=== PATIENT | male | born 1950 | race Caucasian/White ===

== ENCOUNTER 2019-02-13 15:45 | Inpatient (IN) | payer MEDICARE ==
[~2019-02-13] VITALS: Ht 182.8 cm; Wt 76.2 kg
--- NOTE | ~2019-02-13 | PR ---
[place], [place] PROGRESS NOTE NAME[id number] UNIT #: [id number] ROOM: 425 DOCTOR: SEBASTIAN SPENCER MD,ELIANA BIRTHDATE: [birth year] DOS: 02/21/2019 PULMONARY PROGRESS NOTE SUBJECTIVE: The patient was noted comfortable at this time, resting on the bed this morning of assessment, has not been noted with any acute new respiratory complaints. He has been currently showing gradual improvement in the respiratory symptoms as well. He has been continued on intravenous vancomycin for the acute methicillin-resistant Staphylococcus aureus pneumonia and pleural fluid related to that. Denies symptoms of headache or diplopia. Remaining systems were reviewed and they were noted all negative. PHYSICAL EXAMINATION: GENERAL: The patient is currently sitting comfortably on the bed without any distress this morning of assessment. VITAL SIGNS: Recorded as normal temperature, respiratory rate is 20, heart rate is 73, and blood pressure is 142/52. Pulse oxygen saturation on room air is 95% saturation. HEENT: On examination, head was atraumatic. Eyes nonicterus. NECK: Supple. CARDIOVASCULAR SYSTEM: S1, S2 is audible. LUNGS: Without any wheeze or crackles. ABDOMEN: Soft, nontender. Bowel sounds present. EXTREMITIES: Without acute edema. MUSCULOSKELETAL: Without any acute deformities. CENTRAL NERVOUS SYSTEM: Cranial nerves 2-12 intact. LABORATORY DATA: BMP today, normal BUN and creatinine. The CBC of the patient this morning was noted with leukopenia and anemia findings. WBC count was 4.1, hemoglobin was 7.8, hematocrit was 23.8, and platelet count was normal. IMAGING DATA: Chest x-ray was also done this morning shows chest tube in place, marked improvement in aeration of the lung. The pleural fluid, Cytology was noted essentially benign. IMPRESSION: 1. The patient with resolution of loculated pleural fluid, parapneumonic at this time with use of pleurolysis. 2. The patient with acute methicillin-resistant Staphylococcus aureus pneumonia and acute leukopenia and anemia at this time, etiology unclear, could be medication-induced, may require further assessment. PLAN OF THERAPY: Chest tube has been removed at bedside. Continue antibiotic, total of 15 days completion, 14 days minimum for the MRSA pneumonia management complicated with current pleural effusion. The patient's anemia workup has been ordered by Dr. Means. Other therapy, plan of management, and additional treatment changes will be made based on progression of the illness. [place], [place] PROGRESS NOTE NAME: HIMANSHU LOPEZ UNIT #: [id number] ROOM: 425 DOCTOR: ELIANA LEVINE MD BIRTHDATE: [birth year] ELIANA CORTES MD CM:CAITLYN [id number] ELIANA SPENCER MD 02/21/19 2354 interface
--- NOTE | ~2019-02-13 | EKG ---
[place], [place] ELECTROCARDIOGRAM REPORT NAME: HIMANSHU LOPEZ UNIT #: [id number] ROOM: 425 DOCTOR: CLIFF DRAFT REPORT BIRTHDATE: [birth year] [facility] Test Date: 2019-02-15 Test Time: 13:58:17 Pat Name: HIMANSHU LOPEZ Department: Room: 425 Gender: M Head Of Science: Shania Arevalo : 1950 Requested By: ELIANA SPENCER Order Number: [id number] Reading MD: Eliana Lei MD Measurements Intervals Jarrell Rate: 78 P: 73 [place]: 163 QRS: 42 QRSD: 90 T: 43 QT: 412 QTc: 470 Interpretive Statements Sinus rhythm Left ventricular hypertrophy No previous ECG available for comparison Electronically Signed On 02-18-2019 10:54:54 PDT by Eliana Lei MD CM:EKGRPT:ELECTROCARDIOGRAM REPORT [id number] ELIANA SPENCER MD EPIPHANY DRAFT REPORT ELIANA SPENCER MD
--- NOTE | ~2019-02-13 | PROC NOTE ---
[place], [place] PROCEDURE NOTE [id number] UNIT #: [id number] ROOM: 425 DOCTOR: SEBASTIAN SPENCER MD,ELIANA BIRTHDATE: [birth year] DOS: 02/17/2019 PROCEDURE: Chest tube thoracostomy. PREOPERATIVE DIAGNOSIS: Loculated [id number] right pleural effusion with ultrasound assessment related to current acute pneumonia. POSTOPERATIVE DIAGNOSIS: Insertion of the 20-Macedonian chest tube into the right pleural space without any difficulty with some serosanguineous fluid drainage was noted. COMPLICATIONS: None. PROCEDURE DESCRIPTION: Informed consent obtained. Ultrasound of the chest was already performed and the site of thoracentesis marked in the right posterior lower chest. Skin was cleaned with chlorhexidine solution. A 1% lidocaine was administered into the skin and intercostal space. During administration of local anesthetic, a small amount of fluid was aspirated. After that, large bore needle entered into the pleural fluid. The guidewire threaded through the needle, after the aspiration fluid was confirmed in the syringe. After that, needle was removed leaving the guidewire in place. The incision was given at the exit site, this incision was enlarged up to 22-Macedonian plastic dilator over the guidewire. A 20-Macedonian chest tube was inserted up to 8 cm jennifer without difficulty. The initial specimen taken for the sample of the fluid as well as cultures and the pH. Chest x-ray post-procedure was noted with reduction of the pleural fluid formation with area of atelectasis, infiltration with small loculated fluid was noted. Chest tube will be connected to the suction. Chest x-ray daily monitoring will be ordered. Pleural fluid analysis will be completed. ELIANA CORTES MD CM:PROCNOTE:PROCEDURE NOTE [id number] ELIANA SPENCER MD
--- NOTE | ~2019-02-13 | PR ---
[place], [place] PROGRESS NOTE NAME[id number] UNIT #: [id number] ROOM: 425 DOCTOR: SEBASTIAN SPENCER MD,ELIANA BIRTHDATE: [birth year] DOS: 02/18/2019 SUBJECTIVE: The patient is noted comfortable at this time, resting in the bed, has a chest tube inserted yesterday about 850 mL of pleural fluid was drained that did not include the specimen. Total drainage actually would be considered at night and 50 mL of pleural fluid drainage. He has been noted comfortable at this time. Mild chest pain noted which is treated with pain medication for the chest tube. Because of chest tube, the patient has symptoms of fever or chills. Coughing has been noted absent. Shortness of breath is improving with symptoms of nausea, vomiting, diarrhea, abdominal pain, hematemesis, melena, or hematochezia. The patient continued on the intravenous antibiotic as vancomycin. Remaining systems were reviewed, they were noted all negative. OBJECTIVE: VITAL SIGNS: Temperature noted as 99.7 degrees Fahrenheit, respirations 18, heart rate 85, blood pressure 161/60 this morning. Pulse oxygen on room air 94% saturation. HEENT: Head was atraumatic. Eyes nonicterus. NECK: Supple. CARDIOVASCULAR: S1, S2 audible. LUNGS: Decreased breath sounds in the right lower lung. There were no crackles or wheezing. ABDOMEN: Soft, nontender, bowel sounds present. EXTREMITIES: No acute change. MUSCULOSKELETAL: Without acute deformities. CENTRAL NERVOUS SYSTEM: Noted grossly intact. No focal deficit. MUSCULOSKELETAL: No acute deformity. SKIN: No lesions or rashes. LABORATORY DATA: The pleural fluid analysis, WBC 1234 with 28% macrophages 62% neutrophils, 9% lymphocytes. The glucose is 101. The total protein of 3.7. LDH 624, pH is 7.10. Cholesterol less than 50. Amylase and lipase were normal. The CBC this morning was noted WBC count normal, hemoglobin 11.5, platelet count was normal. Culture of the bronchial washing was noted to have a growth of MRSA. BMP that was done this morning, normal BUN and creatinine. Culture of the pleural fluid was noted no bacterial no organisms seen, many white blood cells. Chest x-ray done this morning Radiology review report was pending. The chest x-ray shows evidence of small fluid in the right minor fissure with pleural thickening noted, chest tube remains in place in the right lower hemithorax. Left lung remains clear. IMPRESSION: 1. Acute pneumonia with complicated pleural fluid secondary to that related to acute pneumonia with methicillin-resistant Staphylococcus aureus. 2. Acute methicillin-resistant Staphylococcus aureus pneumonia. PLAN OF MANAGEMENT: The pleurolysis, the patient will be attempted today with a CATHFLO. Continue current antibiotic. Maintain trough level, vancomycin [place], [place] PROGRESS NOTE NAME: HIMANSHU LOPEZ UNIT #: [id number] ROOM: [facility] DOCTOR: SEBASTIAN SPENCER MD,ELIANA BIRTHDATE: [birth year] between 15-20. Other therapy, plan of management. Additional treatment changes will be done according to the progression of illness. ELIANA CORTES MD CM:PNTRANS 1341 15 ELIANA SPENCER MD 06/23/19 1302 interface
--- NOTE | ~2019-02-13 | PR ---
[place], [place] PROGRESS NOTE [id number] UNIT #: [id number] ROOM: 425 DOCTOR: SEBASTIAN SPENCER MD,EILANA BIRTHDATE: [birth year] DOS: 02/24/2019 SUBJECTIVE: The patient continue to do well at this time. Prep for the patient upper and lower endoscopy for assessment of current progressive anemia. The patient has not been noted symptoms of hematemesis, melena. Denies symptoms of fever, chills, coughing or any sputum expectoration. OBJECTIVE: VITAL SIGNS: For the patient which were recorded this morning showed the temperature recorded as normal. Respiratory rate recorded as 18, heart rate 84, blood pressure 158/60. The pulse oxygen saturation as 97% saturation. HEENT: Examination shows head was atraumatic. Eyes nonicterus. NECK: Supple. CARDIOVASCULAR: S1, S2 is audible. LUNGS: The patient was noted without any wheezing or crackles. ABDOMEN: Soft, nontender. Bowel sounds present. EXTREMITIES: No new change. LABORATORY DATA: NÉSTOR level noted as a mildly abnormal. IMPRESSION: 1. The patient with persistent leukopenia that was noted. 2. Resolving acute pneumonia and acute, resolved parapneumonic pleural fluid with methicillin-resistant Staphylococcus aureus. 3. The patient with anemia. PLAN OF TREATMENT: Continue treatment plan and management as previously. No changes in the antibiotic. Proceed with the GI workup and assessment. ELIANA CORTES MD CM:PNTRANS [id number] ELIANA SPENCER MD 06/23/19 1305 interface
--- NOTE | ~2019-02-13 | PR ---
[place], [place] PROGRESS NOTE NAME: HIMANSHU LOPEZ UNIT #: [id number] ROOM: 425 DOCTOR: ELIANA LEVINE MD BIRTHDATE: [birth year] DOS: 02/28/2019 PULMONARY PROGRESS NOTE SUBJECTIVE: The patient was independently seen and examined with [id number] encounter, history was confirmed. Physical examination was performed. Labs reviewed. Assessment and management of the patient today's note was personally made. Note done by the medical technologist hematology was approved as well. The patient has been noted comfortable at this time, resting on the bed, still complaining of a small amount of blood in the stool. Respiratory-hameed, doing very well with absence of any acute symptoms of coughing, wheezing, chest pain, or shortness of breath. Continued receiving intravenous antibiotics. OBJECTIVE: VITAL SIGNS: Normal temperature, respiratory rate 20, heart rate 63, blood pressure 158/60. Pulse oxygen saturation was recorded on room air 98% saturation. HEENT: Head was atraumatic. Eyes nonicterus. NECK: Supple. CARDIOVASCULAR: S1, S2 is audible. LUNGS: Without any wheezing or crackles. ABDOMEN: Soft, nontender. Bowel sounds present. EXTREMITIES: No new change. LABORATORY DATA: The patient's CBC today, hemoglobin 9.8, hematocrit 30.2, WBC count 3.6, and normal platelet count. IMPRESSION: 1. The patient with a stable mild leukopenia as well as stable hemoglobin and hematocrit as well suggestive of major active peptic ulcer bleed. 2. Resolving acute pneumonia with methicillin-resistant Staphylococcus aureus. PLAN OF TREATMENT: No changes in the plan of management. Continue current therapy, plan of management, and close monitoring of the respiratory status, complete the antibiotic course of 14-15 days with vancomycin since he started for the methicillin-resistant Staphylococcus aureus pneumonia. [place], [place] PROGRESS NOTE NAME: HIMANSHU LOEPZ UNIT #: [id number] ROOM: 425 DOCTOR: ELIANA LEVINE MD BIRTHDATE: [birth year] ELIANA CORTES MD CM:PNTRANS [id number] ELIANA SPENCER MD 06/23/19 1311 interface
--- NOTE | ~2019-02-13 | CON ---
[place], [place] REPORT OF CONSULTATION NAME: HIMANSHU LOPEZ UNIT #: [id number] ROOM: 425 DOCTOR: RYDER CONRADSUSAN BIRTHDATE: [birth year] DOS: 02/22/2019 GASTROENDOSCOPIC CONSULTATION HISTORY OF PRESENT ILLNESS: This is a 68-year-old patient who has presented with a chief complaint of profound anemia, hemoglobin of 6 and hematocrit 19. I have been asked for assessment of the patient regarding suspected hematemesis in addition to hemoptysis. His chest x-ray today revealed prior exam of right chest tube has been removed, no pneumothorax, right lower lobe infiltrate is being addressed with Pulmonary Medicine. His latest H and H is 6 and 19. His latest basic metabolic panel within normal limits. Pleural fluid sent out for definitive results. Status post chest tube, status post bronchoscopy, status post antibiotic therapy, all have been recognized. PAST MEDICAL HISTORY: Gastroesophageal reflux, asthma, COPD. PAST SURGICAL HISTORY: Minor. SOCIAL HISTORY: Active nicotine consumer, a pack of cigarettes. About two 6-pack of beer per day. FAMILY HISTORY: Noncontributory. ALLERGIES: No known medications. MEDICATIONS AT HOME: Aspirin 81 mg. REVIEW OF SYSTEMS: HEENT: Denies double vision or blurred vision. RESPIRATORY: Admits shortness of breath. CARDIOVASCULAR: Denies chest pain. DIGESTIVE SYSTEM: No hematemesis, no hematochezia until the day before yesterday where he noticed black tarry stool. PHYSICAL EXAMINATION: VITAL SIGNS: Stable. GENERAL: Nontoxic. The patient is alert and oriented. HEENT: Benign. NECK: Supple. No thyromegaly. CHEST: Symmetric anatomy. COPD pattern, status post chest tube removal. HEART: Normal sinus rhythm. No gallop. No murmur. ABDOMEN: Soft. No hepato-organomegaly. Bowel sounds present. I do not feel the edge of the liver. EXTREMITIES: No cyanosis. No pedal edema. NEUROLOGIC: Alert, oriented to time, place and person. IMPRESSION: 1. Profound anemia, black tarry stool. 2. Other adjunctive diagnoses and events as described in past medical, surgical history, status post bronchoscopy, status post chest tube and chest tube [place], [place] REPORT OF CONSULTATION NAME: HIMANSHU LOPEZ UNIT #: [id number] ROOM: 425 DOCTOR: RYDER CONRAD,SUSAN BIRTHDATE: [birth year] removal. PLAN AND DISCUSSION: Transfusion of one unit packed cells today. We are organizing EGD and colonoscopy in the next day or two. Thank you very much indeed. SUSAN SOLER MD CM:CONSTR:REPORT OF CONSULTATION 1458 03/01/19 0742 interface
--- NOTE | ~2019-02-13 | PR ---
[place], [place] PROGRESS NOTE [id number] UNIT #: [id number] ROOM: 425 DOCTOR: SEBASTIAN SPENCER MD,ELIANA BIRTHDATE: [birth year] DOS: 02/17/2019 PULMONARY PROGRESS NOTE SUBJECTIVE: The patient was noted comfortable at this time, noted resting. The bronchoscopy done yesterday as well. The diagnosis of MRSA was confirmed has a sputum culture, which was sent on 02/14/2019. The patient has been receiving intravenous vancomycin. Denies symptoms of hemoptysis, fever or chills. Low-grade fever was noted intermittently. Denies symptoms of headache or diplopia. Remaining systems were reviewed. They were noted all negative. PHYSICAL EXAMINATION: VITAL SIGNS: Temperature 99.6 degrees Fahrenheit to normal temperature, respiratory rate 16-18, heart rate 140-86, blood pressure 152/51 to 162/72. The pulse oxygen saturation on room air 92% saturation. HEENT: Head was atraumatic. Eyes nonicterus. NECK: Supple. CARDIOVASCULAR: S1, S2 audible. LUNGS: Decreased breath sounds in the right lower lung. ABDOMEN: Soft and nontender. Bowel sounds present. EXTREMITIES: The patient without any acute edema. MUSCULOSKELETAL: Without any acute deformities. CENTRAL NERVOUS SYSTEM: Cranial nerves 2-12 intact. LABORATORY DATA: Gram stain of the bronchial washing right lower lobe and the BAL many white blood cells, moderate gram-positive cocci in pairs, chains and clusters. Sputum culture, both of them was noted heavy growth of gram-positive cocci as well. Pending final results for identification sensitivities. Vancomycin trough level noted at 9.5. Chest x-ray, which was done this morning was reviewed, shows increase of the pleural fluid was noted ordered by the primary care attending as compared with previous chest x-ray. IMPRESSION: The patient with interval development of pleural fluid with the loculation was also assessed with the ultrasound and the chest x-ray related to current acute methicillin-resistant staphylococcus aureus pneumonia. PLAN OF MANAGEMENT: Chest tube insertion will be done with loculation currently complicated. Pleural fluid management. Close monitoring will be done. Might need a VATS procedure tried could be given with the fibrinolytic therapy as well to help improve the current loculated pleural fluid if he failed to do that, VATS procedure will be necessary. This has been discussed with the patient. Other therapy, plan of management and additional treatment changes will be made based on progression of illness. Past, family, social, surgical history of the patient remains unchanged as previously. Vancomycin dose will be changed to get the trough level between 15 and 20. Continue monitoring of the labs as well at this time. The patient has not had any CMP. CBC done in the last 24 hours. It will be re-ordered. [place], [place] PROGRESS NOTE NAME: HIMANSHU LOPEZ [facility] UNIT #: [id number] ROOM: 425 DOCTOR: ELIANA LEVINE MD BIRTHDATE: [birth year] ELIANA CORTES MD CM:PNTRANS 1249 7 ELIANA SPENCER MD 02/18/19227 interface
--- NOTE | ~2019-02-13 | PROC NOTE ---
[place], [place] PROCEDURE NOTE NAME[id number] UNIT #: [id number] ROOM: 425 DOCTOR: SEBASTIAN SPENCER MD,ELIANA BIRTHDATE: [birth year] DOS: 02/16/2019 PROCEDURE: Bronchoscopy. PREOPERATIVE DIAGNOSES: The patient with hemoptysis, abnormal pulmonary infiltration in the lung, rule out endobronchial obstruction for endobronchial lesion or any evidence of active hemoptysis. POSTOPERATIVE DIAGNOSES: Evidence of pneumonia suggestive of endobronchial lesions. BAL specimen was obtained from the right lower lobe including bronchial washings obtained. COMPLICATIONS: None. PROCEDURE DESCRIPTION: Informed consent obtained for the patient. The patient brought to the OR and placed in a supine position. Conscious sedation administered by the Anesthesia Department. After the proper sedation, the patient's airway introduced through mouth. Bronchoscope was advanced to the airway into laryngeal area. Epiglottis and vocal cords were seen, which were moving symmetrically with movements. Bronchoscope advanced further through the vocal and tracheal lumen noted small purulent secretion and suctioned out jefferson level. There was no evidence of active bleeding. Tracheal lumen was noted free of any lesions. The jefferson noted sharp. Left upper lobe as well as right upper, right middle, right lower lobe bronchi were all examined. Purulent secretion present in right lower lobe endobronchial tree, which was suctioned out. There were no endobronchial obstructive lesion, evidence of active bleeding. Old clotted blood noted in the airways. Bronchial washing taken endobronchial trees to other subsegments level. The BAL specimen was also obtained in the right lower lobe basilar bronchi. Procedure was well tolerated without difficulty. Postoperative findings were discussed with the patient's spouse in the recovery room. No major change at this time in the treatment will be necessary. ELIANA CORTES MD CM:PROCNOTE:PROCEDURE NOTE [id number] ELIANA SPENCER MD
--- NOTE | ~2019-02-13 | PR ---
[place], [place] PROGRESS NOTE NAME: HIMANSHU LOPEZ UNIT #: [id number] ROOM: 425 DOCTOR: SEBASTIAN SPENCER MD,ELIANA BIRTHDATE: [birth year] DOS: 02/23/2019 SUBJECTIVE: The patient has been noted comfortable at this time, resting in the bed this morning. Chest tube has been removed 2 days ago. He has been getting antibiotic. Planned for the endoscopy to be done tomorrow for assessment of his anemia. OBJECTIVE: VITAL SIGNS: For the patient which were recorded showed normal temperature, respiratory rate 16, blood pressure 144/57. Pulse oxygen saturation on room air was 97% saturation. HEENT: Head was atraumatic. Eye nonicterus. NECK: Supple. CARDIOVASCULAR: S1, S2 is audible. LUNGS: Without any wheeze or crackles. ABDOMEN: Soft, nontender. LABORATORY DATA: BMP today was noted normal BUN and creatinine. CBC this morning, WBC count 4.3, hemoglobin 8, hematocrit 20.3 after 2 packed RBC blood transfusions. Stool for occult blood noted positive. IMPRESSION: GI bleeding has been noted, resolving acute respiratory failure as well as an acute pneumonia with MRSA. Resolution of the complicated pleural fluid, chest tube insertion that has been already removed. PLAN OF TREATMENT: Continue GI workup at this time from the pulmonary standpoint. Continue antibiotic. Monitor leukopenia. Usual care as well as therapy, plan of management care, plan of treatments. ELIANA CORTES MD CM:PNTRANS 1154 1647 ELIANA SPENCER MD 06/23/19 1304 interface
--- NOTE | ~2019-02-13 | O ---
[place], [place] OPERATIVE NOTE NAME: HIMANSHU LOPEZ UNIT #: [id number] ROOM: 425 DOCTOR: RYDER CONRAD,SUSAN BIRTHDATE: [birth year] DOS: 02/24/2019 INDICATIONS: This is a 68-year-old patient who was presented with chief complaint of anemia, GI bleed, undergoing investigation. PROCEDURE: Today's procedure part of investigation is panendoscopy and colonoscopy. PREMEDICATION: Propofol. SCOPE: Olympus forward-viewing gastroscope Q10 video. REPORT: After putting the patient in left lateral position and application of lubricant to the scope, the scope was introduced under direct visualization, advanced through the length of esophagus without difficulty. Entering the gastric pouch, there is evidence of blood in the stomach. Duodenal bulb was entered so far. Gastritis noticed. However, large duodenal ulcer with bleeding spots from the center. Photographic series obtained. Epinephrine 1-10,000, 3 mL was injected in the periphery of bleeding ulcer. Bleeding controlled. Air was suctioned out after antral biopsy. The patient extubated, tolerated the procedure well. IMPRESSION: Gastritis, duodenal ulcer, status post hemostasis epinephrine injection therapy. We will proceed with colonoscopy. SUSAN SOLER MD CM:OPRECORD:OPERATIVE NOTE 1607 [id number] SUSAN SOLER MD 03/01/19 0746 interface
--- NOTE | ~2019-02-13 | PR ---
[place], [place] PROGRESS NOTE NAME: HIMANSHU LOPEZ UNIT #: [id number] ROOM: 425 DOCTOR: ABE AGUILAR DO BIRTHDATE: [birth year] DOS: 02/28/2019 PULMONARY PROGRESS NOTE INTERVAL HISTORY: The patient states that he feels good today. The patient states his breathing is at his baseline. The patient states that he does have a small amount of blood in his stool this morning. The patient denies any coughing or shortness of breath. PHYSICAL EXAMINATION: VITAL SIGNS: Temperature 98.7, pulse of 63, respiratory rate 20, blood pressure is 158/60, and pulse ox of 98% on room air. HEENT: Atraumatic, nonicteric eyes. CARDIOVASCULAR: Regular rate and rhythm. S1 and S2 are audible. LUNGS: The patient without any wheezing or crackles. ABDOMEN: Soft, nontender, bowel sounds present. EXTREMITIES: No acute changes. NEUROLOGIC: No focal neuro deficits. Cranial nerves 2-12 grossly intact. LABORATORY DATA: Shows white count 33.6, hemoglobin 9.8, hematocrit 30.2, and platelets 382. Chemistry: Sodium is 139, potassium 3.6, chloride 101, carbon dioxide 31, BUN 4, creatinine 0.92, glucose 111, and calcium noted to be 8.4. IMPRESSION: 1. The patient with acute gastrointestinal bleed. 2. Leukopenia. 3. Anemia. 4. Resolving acute MRSA pneumonia. With resolved parapneumonic pleural effusions. PLAN AND TREATMENT: No change from pulmonary standpoint, continue antibiotic use until 03/04/2019. Monitor labs. Follow GI recommendations. Estevan Aguilar DO [place], [place] PROGRESS NOTE NAME: HIMANSHU LOPEZ UNIT #: [id number] ROOM: 425 DOCTOR: ABE AGUILAR DO BIRTHDATE: [birth year] ELIANA CORTES MD CM:PNTRANS [id number] [id number] ABE AGUILAR DO 03/01/19 1013 interface
--- NOTE | ~2019-02-13 | PR ---
[place], [place] PROGRESS NOTE NAME: HIMANSHU LOPEZ UNIT #: [id number] ROOM: 425 DOCTOR: ELIANA LEVINE MD BIRTHDATE: [birth year] DOS: 02/22/2019 PULMONARY PROGRESS NOTE SUBJECTIVE: The patient has been noted comfortable at this time, currently being investigated for the acute anemia, which was noted at the present time. He has been getting antibiotics as vancomycin for the MRSA pneumonia. Chest tube was removed yesterday. OBJECTIVE: VITAL SIGNS: The vital signs, which have recorded this morning, normal temperature, respiratory rate is 20, heart rate is 110, and blood pressure is 160/50. Pulse oxygen saturation on room air is 94% saturation. HEENT: Examination shows head was atraumatic. Eyes were nonicterus. CARDIOVASCULAR SYSTEM: S1, S2 audible. LUNGS: Noted with mild decreased breath sounds in the right lower lung. There were no crackles. ABDOMEN: Soft, nontender, bowel sounds present. EXTREMITIES: No acute change. LABORATORY DATA: Vancomycin trough level is 25 today, which is mildly elevated. CBC this morning: WBC count is 4.5, hemoglobin is 6.5, hematocrit is 19.6 with normal platelet count. IMAGING DATA: Chest x-ray, which was done this morning, ordered by the primary care attending, noted small right lower lobe infiltrate. IMPRESSION: 1. The patient has been currently noted with acute pneumonia with methicillin-resistant Staphylococcus aureus, which has been resolving with pleural fluid related to the acute bacterial infection and methicillin-resistant Staphylococcus aureus pneumonia, treated with chest tube insertion as well as pleurolysis. 2. The patient with progressive anemia, etiology remains unclear. Possible gastrointestinal bleeding has been considered. PLAN OF MANAGEMENT: Continuation of the bronchodilators, oxygen supplementation, and antibiotics. Adjustment of the antibiotic by the pharmacy to maintain a trough level between 15 and 20. [place], [place] PROGRESS NOTE NAME: HIMANSHU LOPEZ UNIT #: [id number] ROOM: 425 DOCTOR: ELIANA LEVINE MD BIRTHDATE: [birth year] ELIANA CORTES MD CM:PNTRANS [id number] ELIANA SPENCER MD 06/23/19 1303 interface
--- NOTE | ~2019-02-13 | PR ---
[place], [place] PROGRESS NOTE NAME[id number] UNIT #: [id number] ROOM: 425 DOCTOR: SEBASTIAN SPENCER MD,ELIANA BIRTHDATE: [birth year] DOS: 02/16/2019 SUBJECTIVE: The patient was noted about the comfortable. This morning he is n.p.o., bronchoscopy done today. Coughing has been noted intermittently small sputum expectoration. Denies any major hemoptysis. There were no symptoms of chest pain. Shortness of breath occurs with exertion. Denies symptoms of wheezing, headache, diplopia, nausea, vomiting, diarrhea, abdominal pain, hematemesis, melena, or hematochezia. Remaining systems reviewed as negative. OBJECTIVE: VITAL SIGNS: On low-grade fever of 99.4 degree Fahrenheit, normal temperature, respiratory rate 18-20, heart rate 89-73, blood pressure 167/73, 156/65. Pulse oxygen saturation recorded as 93% saturation on room air. HEENT: Examination shows head was atraumatic. Eyes nonicterus. NECK: Supple. CARDIOVASCULAR: S1, S2 audible. LUNGS: The patient decreased breath sounds previously noted in the right lower lung. The mild crackles were present. ABDOMEN: Soft, nontender. Bowel sounds present. EXTREMITIES: The patient without acute edema. MUSCULOSKELETAL: Without acute deformities. VISIBLE SKIN: No lesions or rashes. CENTRAL NERVOUS SYSTEM: Intact. LABORATORY DATA: Sputum culture was pending this morning, which was sent on of this month, gram-positive cocci growth was suggested. BMP this morning, BUN 10, creatinine was 0.62. CBC this morning: WBC count normal, hemoglobin 12.4, MCV 101 with normal platelet count. IMPRESSION: 1. The patient has been currently noted with acute large pneumonia involving the right lower lobe with associated small pleural effusion. 2. Hemoptysis, mostly originating from the current pulmonary infiltration suggestive of acute pneumonia, gram-positive organism, pending identification sensitivities of the organisms. PLAN OF TREATMENT: No change in the plan of care at this time. Continue the patient's current therapy at this time as in progress. Proceed with bronchoscopy, manage antibiotic, the patient may changes after the culture results availability and bronchoscopy accordingly. Other therapy, plan and management, additional treatment changes will be made based on the progression of the illness. [place], [place] PROGRESS NOTE NAME: HIMANSHU LOPEZ UNIT #: [id number] ROOM: 425 DOCTOR: ELIANA LEVINE MD BIRTHDATE: [birth year] ELIANA CORTES MD CM:PNTRANS [phone] ELIANA SPENCER MD 06/23/19 1300 interface
--- NOTE | ~2019-02-13 | PROC NOTE ---
[place], [place] PROCEDURE NOTE NAME: [facility]OPEZ [id number] UNIT #: [id number] ROOM: 425 DOCTOR: SEBASTIAN SPENCER MD,ELIANA BIRTHDATE: [birth year] DOS: 02/18/2019 PROCEDURE: Chemical pleurodesis with Cathflo. PREOPERATIVE DIAGNOSES: Loculated pleural fluid secondary to the current acute pneumonia with methicillin-resistant Staphylococcus aureus. POSTOPERATIVE DIAGNOSES: Loculated pleural fluid secondary to the current acute pneumonia with methicillin-resistant Staphylococcus aureus. COMPLICATIONS: None. PROCEDURE DESCRIPTION: The patient informed about the procedure. The chest tube was clamped. The Cathflo, which is a 4 mg total amount mixed in 50 normal saline, injected through the chest tube into the right pleural space without any difficulty. Additional 100 mL of normal saline was used for the patient to flush the chest tube as well. The chest tube for 1 hour remained clamped. Clamp will be removed for further drainage to the Pleur-evac. Procedure well tolerated without any complications. ELIANA CORTES MD CM:PROCNOTE:PROCEDURE NOTE [phone] ELIANA SPENCER MD
--- NOTE | ~2019-02-13 | O ---
[place], [place] OPERATIVE NOTE NAME: HIMANSHU LOPEZ UNIT #: [id number] ROOM: 425 DOCTOR: RYDER CONRAD,SUSAN BIRTHDATE: [birth year] DOS: INDICATION: The patient has presented with GI bleed. PROCEDURE: Today's procedure part of investigation is colonoscopy plus snare polypectomy. PREMEDICATION: Propofol. SCOPE: Olympus forward-viewing colonoscope 10L video. REPORT: Putting the patient in left lateral position and application of lubricant to the rectal pouch. The scope was introduced. Thereafter, under direct visualization, advanced through the length of colon without difficulty until we approach major flexures and his extreme tortuosity angulation, severe diverticulosis of sigmoid and left side of the colon. Scope was advanced to the hepatic flexure snare polypectomy of a flat polyp was undertaken ascending colon. Base of cecum could not be with certainty diagnosed with presence of tarry liquid stool and air was suctioned out after lavage the patient extubated, tolerated the procedure well. IMPRESSION: Diverticulosis of severe degree of colon, sessile polypoid lesion flat at hepatic flexure. PLAN AND DISCUSSION: We are going to manage the upper GI bleed with Sandostatin, Carafate, Protonix as the culprit in bleeding and eventually this patient requires a barium enema in future for further documentation of right colon. SUSAN SOLER MD CM:OPRECORD:OPERATIVE NOTE [id number] SUSAN SOLER MD 03/01/19 0747 interface
--- NOTE | ~2019-02-13 | PR ---
[place], [place] PROGRESS NOTE NAME: HIMANSHU LOPEZ UNIT #: [id number] ROOM: 425 DOCTOR: SEBASTIAN SPENCER MD,ELIANA BIRTHDATE: [birth year] DOS: 02/20/2019 PULMONARY PROGRESS NOTE SUBJECTIVE: The patient is noted comfortable at this time, resting on the bed. He has chest tube in place. The catheter was injected through the chest to right pleural space yesterday, which is also noted effective at this time with significant pleural fluid drainage, appeared to be clear at this time, straw color. He has not been noted any symptoms of fever or chills. There was no cough. Denies symptoms of chest pain. OBJECTIVE: VITAL SIGNS: Blood pressure 142/49, respiratory rate of 18, heart rate 87, temperature 99.4 degree Fahrenheit, respirations 18, all recorded at midnight. HEENT: Shows head was atraumatic, eyes nonicterus. NECK: Supple. CARDIOVASCULAR: S1 and S2 audible. LUNGS: The patient was noted with xihd-ht-ogyhewzy decreased breath sounds in the right lower lung. There were no crackles or wheezing. ABDOMEN: Soft, nontender. Bowel sounds present. EXTREMITIES: No acute change. LABORATORY AND DIAGNOSTIC DATA: CBC today: WBC count normal, hemoglobin 8.7, platelet count normal. Chest x-ray, one-view, which was done this morning was reviewed as well, shows significant improvement in aeration with resolution of the loculated pleural fluid, resolving acute pneumonia, and right lower chest tube remains in place. IMPRESSION: 1. Acute methicillin-resistant staphylococcus aureus pneumonia with complicated pleural fluid. The patient is responding to treatment with chemical pleurodesis with use of Cathflo. 2. Anemia. PLAN OF MANAGEMENT: Continue chest tube daily in the next 24 hours. Possible consideration of removal of the chest tube tomorrow morning as well and intravenous antibiotic arrangement prior to discharge to correction facility based on his insurance benefits. Other therapy, plan of management, other care and plan of treatment. Social Service consultation has been asked. Drainage through the chest tube was noted a total of 540 mL of pleural fluid drainage. [place], [place] PROGRESS NOTE NAME: HIMANSHU LOPEZ UNIT #: [id number] ROOM: 425 DOCTOR: ELIANA LEVINE MD BIRTHDATE: [birth year] ELIANA CORTES MD CM:PNTRANS [phone] ELIANA SPENCER MD 02/20/19 1126 interface
--- NOTE | ~2019-02-13 | PR ---
[place], [place] PROGRESS NOTE [id number] #: [id number] ROOM: 425 DOCTOR: SEBASTIAN SPENCER MD,ELIANA BIRTHDATE: [birth year] DOS: 02/15/2019 PULMONARY PROGRESS NOTE SUBJECTIVE: He has still reporting symptoms of hemoptysis occurred last night, but not this morning a small quantity. Denies symptoms of fever or chills. Shortness of breath noted stable. He has been noted coughing without any sputum expectoration. Denies symptoms of nausea, vomiting, diarrhea, abdominal pain, hematemesis, melena, or hematochezia. Denies symptoms of headache or diplopia. Denies abnormal skin rashes. Remaining systems were reviewed. They were noted all negative. OBJECTIVE: VITAL SIGNS: In the last 24 hours as a normal temperature, respiratory rate of 20-18, heart rate 70-72, blood pressure 152/56-160/59. The pulse oxygen saturation was recorded as 97% saturation on room air. HEENT: Examination shows head was atraumatic. Eyes nonicterus. NECK: Supple. CARDIOVASCULAR: S1, S2 audible. LUNGS: Decreased breaths in the right lower lung. There is no wheezing or crackles. ABDOMEN: Soft, nontender. Bowel sounds present. EXTREMITIES: Acute edema. MUSCULOSKELETAL: Without any acute deformities. LABORATORY DATA: Results. The influenza A, B, nasal washing antigen 02/14/2019 was negative. ESR was 72. ESR was 12 yesterday: WBC count normal, hemoglobin 12.3, platelet count normal. MCV 103. BMP, normal BUN and creatinine and other electrolytes. Blood culture, no bacterial growth from 02/13/2019 with final cultures are pending. Urine culture, no bacterial growth from 02/14/2019 as well. IMPRESSION: Large pulmonary infiltration noted in the right lower lobe with mass-like consolidation in the medial subsegment right lower lobe as well with associated small partially loculated pleural effusion. Stable respiratory status noted at present time, but still noted hemoptysis. PLAN OF TREATMENT: No changes in the plan of management at this time. Continue antibiotics and bronchodilators. Further assessment of hemoptysis was suggested for bronchoscopy, which will be done tomorrow morning as the patient agreed with that. Monitoring all the labs as ordered with assessment of hemoptysis with additional treatment changes will be ordered accordingly. Supportive therapy, plan of management care. [place], [place] PROGRESS NOTE NAME: HIMANSHU LOPEZ UNIT #: [id number] ROOM: 425 DOCTOR: ELIANA LEVINE MD BIRTHDATE: [birth year] ELIANA CORTES MD CM:CAITLYN [phone] ELIANA SPENCER MD 06/23/19 1259 interface
--- NOTE | ~2019-02-13 | PR ---
[place], [place] PROGRESS NOTE NAME: HIMANSHU LOPEZ UNIT #: [id number] ROOM: 425 DOCTOR: SUSAN SOLER MD BIRTHDATE: [birth year] DOS: 02/27/2019 GASTROENDOSCOPIC REPORT HISTORY OF PRESENT ILLNESS: This gentleman has presented with aggressive GI bleed. He was found to have a bleeding duodenal ulcer, hemostasis therapy with epinephrine was done. The patient has been kept on Sandostatin. The patient has been kept on the liquid diet, aggressive sucralfate and PPI has been double dose utilized so far since endoscopy 4 days ago he has required 4 units of packed cells. His platelet collagen epinephrine is 81, which is low, normal is 86 and clinically would be more functional platelets greater than 90. SOCIAL HISTORY: He has been drinking two 6-pack of beer per day and 6-pack of cigarettes per day. His pulmonary status is being stabilized. REVIEW OF SYSTEMS: HEENT: Denies double vision, blurred vision. RESPIRATORY: Admits to shortness of breath. CARDIOVASCULAR: Denies acute chest pain. DIGESTIVE SYSTEM: No hematemesis, no hematochezia since admission. PHYSICAL EXAMINATION: VITAL SIGNS: Stable. HEENT: Head normocephalic, nontraumatic. Mouth and buccal mucosa benign. NECK: Supple. No cervical lymphadenopathy. CHEST: Symmetric anatomy, decreased air entry. HEART: Normal sinus rhythm, no gallop, no murmur. ABDOMEN: Soft. No hepato-organomegaly. Bowel sounds present. EXTREMITIES: No cyanosis, no pedal edema. NEUROLOGIC: Alert, oriented to time, place. IMPRESSION: Gastrointestinal bleed secondary to intake of avid volume of the alcohol. PLAN AND DISCUSSION: I am going to continue with aggressive ulcer therapy. We are going to continue another day of Sandostatin therapy. We will continue with Protonix 40 mg IV b.i.d. We are going to continue with Carafate therapy, liquid diet. H and H followup. I decided not to transfuse him with platelets due to dysfunctionality of the platelets. We will observe the H and H and transfuse as necessary. [place], [place] PROGRESS NOTE NAME: HIMANSHU LOPEZ UNIT #: [id number] ROOM: 425 DOCTOR: SUSAN SOLER MDDATE: [birth year] SUSAN SOLER MD CM:CAITLYN [phone] SUSAN SOLER MD 03/15/19 0728 interface
--- NOTE | ~2019-02-13 | EKG ---
[place], [place] ELECTROCARDIOGRAM REPORT NAME: HIMANSHU LOPEZ UNIT #: [id number] ROOM: 425 DOCTOR: CLIFF DRAFT REPORT BIRTHDATE: [birth year] [facility] Test Date: 2019-02-13 Test Time: 16:42:18 Pat Name: HIMANSHU LOPEZ Department: Room: 425 Gender: M [employer]: Medina Gomez : 1950 Requested By: IVAN HOLLAND Order Number: [id number] Reading MD: Vini Lei MD Measurements Intervals [place] Rate: 91 P: 69 [place]: 155 QRS: 43 QRSD: 87 T: 46 QT: 378 QTc: 466 Interpretive Statements Sinus rhythm Probable left atrial enlargement Probable left ventricular hypertrophy Baseline wander in lead(s) II,III,aVR,aVL,aVF No previous ECG available for comparison Electronically Signed On 02-18-2019 10:54:50 PDT by Vini Lei MD CM:EKGRPT:ELECTROCARDIOGRAM REPORT 1642 1054 IVAN HOLLAND EPIPHANY DRAFT REPORT IVAN HOLLAND
--- NOTE | ~2019-02-13 | PR ---
[place], [place] PROGRESS NOTE NAME: [id number] UNIT #: [id number] ROOM: 425 DOCTOR: SEBASTIAN SPENCER MD,ELIANA BIRTHDATE: [birth year] DOS: 02/19/2019 PULMONARY PROGRESS NOTE SUBJECTIVE: The patient continued to do well. The patient has pleurolysis yesterday with a Cathflo, seem to be effective, about 600 mL of fluid drainage was noted. The fluid was noted serosanguineous. He has not been noted symptoms of fever or chills. Denies symptoms of chest pain. There were no symptoms of coughing. Denies symptoms of nausea, vomiting, diarrhea, abdominal pain, hematemesis, melena, hematochezia, or hematuria. Remaining systems were reviewed and they were noted all negative. PHYSICAL EXAMINATION: VITAL SIGNS: Temperature was noted as normal, 99.2 degree fahrenheit noted at midnight, respiratory rate is 20 this morning, heart rate is 140-80, blood pressure is 161/60-160/57 earlier. The pulse oxygen saturation on 2 liters is 93% saturation. Intake and output, total drainage of pleural fluid noted in the last 24 hours as 680 mL, of which 600 mL was after the Cathflo injection into the pleural space. HEENT: On examination, head was atraumatic. Eyes nonicterus. NECK: Supple. CARDIOVASCULAR SYSTEM: S1, S2 audible. LUNGS: Noted without any wheezing or crackles at the present time. Decreased breath sounds in the right lower lung. ABDOMEN: Soft, nontender. Bowel sounds present. EXTREMITIES: No acute change. MUSCULOSKELETAL: Without any acute deformities. SKIN: No lesions or rashes. CENTRAL NERVOUS SYSTEM: Intact. LABORATORY DATA: BMP this morning, BUN is normal, creatinine is normal. Albumin is 1.6. CBC of the patient this morning, normal WBC count, hemoglobin is 10, and platelet count is normal. IMAGING DATA: Chest x-ray showed improvement in aeration of the lung noted with improving area of loculation, right lower lobe with improvement in aeration. IMPRESSION: Resolving acute pneumonia with methicillin-resistant Staphylococcus aureus with loculated pleural fluid with current Cathflo injection. PLAN OF MANAGEMENT: Another injection of Cathflo will be done today into the pleural space, right side to the chest tube. Continue the other plan of treatment and therapy. Usual care. Supportive plan of management. Additional treatment changes will be ordered according to the progression of the illness. Continue to monitor chest x-ray and the pleural fluid drainage. [place], [place] PROGRESS NOTE NAME: HIMANSHU LOPEZ UNIT #: [id number] ROOM: [facility] DOCTOR: ELIANA LEVINE MD BIRTHDATE: [birth year] ELIANA CORTES MD CM:PNTRANS [phone] ELIANA SPENCER MD 02/20/19 0023 interface
--- NOTE | ~2019-02-13 | PR ---
[place], [place] PROGRESS NOTE NAME: HIMANSHU LOPEZ UNIT #: [id number] ROOM: 425 DOCTOR: ABE AGUILAR DO BIRTHDATE: [birth year] DOS: 03/01/2019 SUBJECTIVE: The patient was seen and examined today. The patient states that he had no more bloody bowel movements. The patient states that respiratory hameed, he feels like he is back to his baseline. The patient denies cough, wheezing, chest pain, or shortness of breath. Continue IV antibiotics time at this time. OBJECTIVE: VITAL SIGNS: Temperature 98.4, pulse rate 87, respiratory rate 18, blood pressure 140/57, pulse ox 96% on room air. HEENT: Head is atraumatic. Eyes are nonicteric. NECK: Supple. Trachea is midline. CARDIOVASCULAR: S1, S2 audible, regular rate and rhythm. LUNGS: Without any wheezes or crackles bilaterally. ABDOMEN: Soft, nontender, bowel sounds present. EXTREMITIES: No edema bilaterally. LABORATORY DATA: CBC shows a white count of 3.2, hemoglobin is 10.0. Yesterday, this was 9.8, hematocrit 30.3, platelet count of 362. Chemistries: Sodium is 139, potassium 3.6, chloride 101, carbon dioxide 31, BUN 4, creatinine 0.92, calcium is 8.4. ASSESSMENT: 1. The patient is stable with mild leukopenia. 2. Gastrointestinal bleed. 3. Resolving acute pneumonia with methicillin-resistant Staphylococcus aureus. PLAN: No changes at this time. Continue current therapy while the patient is inpatient with IV vancomycin. The patient will need antibiotics until 03/04/2019. However, the patient is stable to be discharged on p.o. Zyvox for the methicillin-resistant Staphylococcus aureus pneumonia. The patient is stable from pulmonology standpoint for discharge. He is to follow up with Dr. Cortes's office in 2-4 weeks after discharge. Estevan Aguilar DO [place], [place] PROGRESS NOTE NAME: HIMANSHU LOPEZ UNIT #: [id number] ROOM: 425 DOCTOR: ABE AGUILAR DO BIRTHDATE: [birth year] ELIANA CORTES MD CM:CAITLYN [phone] ABE AGUILAR DO 03/01/19 1909 interface
--- NOTE | ~2019-02-13 | PR ---
[place], [place] PROGRESS NOTE NAME: HIMANSHU LOPEZ UNIT #: [id number] ROOM: 425 DOCTOR: ELIANA LEVINE MD BIRTHDATE: [birth year] DOS: 02/25/2019 PULMONARY PROGRESS NOTE SUBJECTIVE: The patient was noted comfortable at this time, resting in the bed, in no acute distress. He had not reported any symptoms of chest pain, coughing or any sputum expectoration. Had an endoscopy done for this patient, which has been noted with bleeding peptic ulcer. The patient has been currently getting Sandostatin drip for that. OBJECTIVE: GENERAL: This morning, the patient is resting comfortably. VITAL SIGNS: Noted normal temperature, respiratory rate 18, heart rate 75, blood pressure 150/64. Pulse oxygen saturation recorded as 98% saturation at rest on room air. HEENT: No acute changes. NECK: Supple. CARDIOVASCULAR SYSTEM: S1, S2 audible. LUNGS: Without any wheezing, no crackles. ABDOMEN: Soft, nontender. Bowel sounds present. EXTREMITIES: No acute change. IMPRESSION: 1. Resolving acute pneumonia with methicillin-resistant Staphylococcus aureus with resolving pleural fluid parapneumonic with the chest tube. 2. Active peptic ulcer bleeding. PLAN OF MANAGEMENT: No change in plan of management from pulmonary standpoint. Completion of antibiotic, minimum 14 days for the patient's acute MRSA pneumonia. Monitor pleural fluid. Continue other therapy, plan of management, care and treatment, and usual therapies. The patient was planned for additional blood transfusion to be given today as stated by the patient as his hemoglobin today was noted 7.3 and hematocrit of 22. [place], [place] PROGRESS NOTE NAME: HIMANSHU LOPEZ UNIT #: [id number] ROOM: 425 DOCTOR: ELIANA LEVINE MD BIRTHDATE: [birth year] ELIANA CORTES MD CM:PNTRANS [phone] ELIANA SPENCER MD 02/26/19 0335 interface
--- NOTE | ~2019-02-13 | PR ---
[place], [place] PROGRESS NOTE NAME: HIMANSHU LOPEZ UNIT #: [id number] ROOM: 425 DOCTOR: SEBASTIAN SPENCER MD,ELIANA BIRTHDATE: [birth year] DOS: 03/01/2019 SUBJECTIVE: The patient remains comfortable at this time, has been doing very well at this point. He has not been noted any symptoms of chest pain, fever or chills. Denies symptoms of hemoptysis. The bleeding in the stool, resolving. The patient independently seen and examined, [id number] encounter, history was confirmed. Physical examination performed. Labs reviewed. Note done by the faculty i on call medical assistant, was approved. OBJECTIVE: VITAL SIGNS: Normal temperature, respiratory rate 18, heart rate 81, blood pressure 141/57. The pulse oxygen saturation on room air 97% saturation. HEENT: No new change. NECK: Supple. CARDIOVASCULAR: S1, S2 audible. LUNGS: Clear bilaterally. ABDOMEN: Soft, nontender. Bowel sounds present. EXTREMITIES: No new changes. LABORATORY DATA: CBC: WBC count 3.2, hemoglobin 10, hematocrit 30.7, platelet count was normal. IMPRESSION: Stable respiratory status was still noted leukopenia, etiology was not completely clear, may be medication related. Other bone marrow issue patient needs to be further investigated if the leukopenia remains persistent after completion of current antibiotics for the MRSA pneumonia. Discharge planning from pulmonary standpoint could be started any time to complete a total duration of antibiotic at the end or outpatient. ELIANA CORTES MD CM:PNTRANS [id number] ELIANA SPENCER MD 03/01/191927 interface
--- NOTE | ~2019-02-13 | PR ---
[place], [place] PROGRESS NOTE NAME: HIMANSHU LOPEZ UNIT #: [id number] ROOM: 425 DOCTOR: ELIANA LEVIEN MD BIRTHDATE: [birth year] DOS: 02/27/2019 PULMONARY PROGRESS NOTE SUBJECTIVE: The patient stating that he has noted a small amount of fresh blood in the stool, currently treated for acute peptic ulcer bleeding. He was continued on the octreotide drip intravenously. Continue receiving intravenous antibiotics for the MRSA pneumonia. Denies any chest pain. There was no coughing or shortness of breath. PHYSICAL EXAMINATION: VITAL SIGNS: Normal temperature, respiratory rate 20, heart rate of 69, blood pressure 164/48. Pulse oxygen saturation on room air 96% saturation. HEENT: Examination shows head was atraumatic. Eyes nonicterus. NECK: Supple. CARDIOVASCULAR: S1, S2 audible. LUNGS: The patient without any wheeze or crackles at the present time. ABDOMEN: Soft, nontender. Bowel sounds present. EXTREMITIES: No acute change. LABORATORY DATA: CBC, WBC count of 3.3, hemoglobin 7.7, hematocrit 23.2, platelet count was normal 312. IMPRESSION: 1. The patient with acute gastrointestinal bleeding. 2. Mild leukopenia. 3. Anemia. 4. Resolving acute methicillin-resistant Staphylococcus aureus pneumonia for this patient with resolved parapneumonic pleural effusion. PLAN OF TREATMENT: No changes from the pulmonary standpoint, completion of antibiotic total course of 14 days on 03/04/2019. Monitor leukopenia. Follow the GI recommendation by the GI bleeding management. [place], [place] PROGRESS NOTE NAME: HIMANSHU LOPEZ UNIT #: [id number] ROOM: 425 DOCTOR: ELIANA LEVINE MD BIRTHDATE: [birth year] ELIANA CORTES MD CM:PNTRANS [phone] ELIANA SPENCER MD 02/28/19 0237 interface
--- NOTE | ~2019-02-13 | CON ---
[place], [place] REPORT OF CONSULTATION NAME: [facility]OPEZ [id number] UNIT #: [id number] ROOM: 403 DOCTOR: SEBASTIAN SPENCER MDELIANA BIRTHDATE: [birth year] DOS: 02/14/2019 PULMONARY CONSULTATION EVALUATION AND MANAGEMENT CONSULTATION REQUESTED BY: Hospitalist Service. REASON FOR CONSULTATION: Coughing, hemoptysis. HISTORY OF PRESENT ILLNESS: This is a 68-year-old white male patient who has been assessed in the Emergency Room as the patient has been noted with symptoms of small amount of hemoptysis, speck of the blood noted with the sputum expectoration about 7-8 times at home yesterday. The patient has been admitted to the hospital for further care. He has one more episode of same cough with small speck of blood, but not noted with any major hemoptysis at this time. The patient denies symptoms of fever or chills with that. He has been noted ongoing symptoms since . He also has reported symptoms of GI tract, nausea, vomiting and diarrhea. The symptoms of GI tract has been decreased. Denies symptoms of fever or chills, but complains of fatigue. REVIEW OF SYSTEMS: CONSTITUTIONAL: Fatigue and tiredness noted without any symptoms of fever or chills. EYES: Denies any burning, redness, or tenderness. EARS, NOSE, THROAT SYMPTOMS: Denies sore throat, hoarseness, otalgia, postnasal drainage or epistaxis. CARDIOVASCULAR: Denies angina pain, edema, pain of the lower extremities. GASTROINTESTINAL: Denies dysphagia with nausea, vomiting, diarrhea at this time. Symptoms have been present prior to admission for a few days. There was no symptom of abnormal weight loss. Denies symptoms of hematochezia, hematemesis, or melena. GENITOURINARY: No dysuria, hematuria, or suprapubic pain. MUSCULOSKELETAL: No acute joint pain, redness, or tenderness. SKIN: No lesions or rashes. CENTRAL NERVOUS SYSTEM: The patient denies any symptoms of dizziness, headache, diplopia, syncopal episodes. Remaining systems were reviewed with the patient, they were noted all negative. PAST MEDICAL HISTORY: Reported as: 1. History of gastroesophageal reflux. 2. Bronchial asthma since childhood. PAST SURGICAL HISTORY: The patient does not take any regular medication for that. SOCIAL HISTORY: The patient stated that he is , has one child, lives at home. Tobacco use noted at age of [age] years old 1 pack of cigarettes per day until hospitalization. There was no history of alcohol use or any illicit drug use. The patient worked for several years different places including [employer], [employer] and [employer]. [place], [place] REPORT OF CONSULTATION NAME: HIMANSHU LOPEZ UNIT #: [id number] ROOM: 403 DOCTOR: SEBASTIAN SPENCER MD,ELIANA BIRTHDATE: [birth year] FAMILY HISTORY: The patient's father at age 92 with complications of spontaneous rupture of the esophagus. The mother at age 70 years with complication of Alzheimer's dementia. MEDICATIONS: The medications at home were listed only aspirin 81 mg p.o. daily use. CURRENT MEDICATIONS: Current medications which has been administered on this hospitalization were reviewed as aspirin, Protonix, Lovenox for DVT prophylaxis, DuoNeb, IV Rocephin, metronidazole and others. DRUG ALLERGIES: Noted with no known drug allergies. PHYSICAL EXAMINATION: GENERAL: A 68-year-old white male patient who has been currently sitting comfortably on the bed this morning of assessment. Height of 6 feet, weight 168 pounds, BMI 22.8. VITAL SIGNS: Normal temperature, respiratory rate 20, heart rate 86, blood pressure 156/70-139/52. The pulse oxygen saturation recorded at rest on room air as 96% saturation on 2 liters 98% saturation. HEENT: Head was atraumatic. Eyes nonicterus. NECK: Supple. CARDIOVASCULAR: S1, S2 is audible. LUNGS: The patient was noted without any crackles, rhonchi, or wheezing at the present time. Breaths are noted diminished in the right lower lung. ABDOMEN: Soft, nontender. Bowel sounds present. EXTREMITIES: The patient without any edema, clubbing, cyanosis. MUSCULOSKELETAL: Without any acute deformities. CENTRAL NERVOUS SYSTEM: Cranial nerves 2-12 intact. LABORATORY DATA: The patient's lactic acid yesterday normal CBC as WBC count normal, hemoglobin and hematocrit normal, platelet count was normal. The PT, PTT that was done yesterday as normal. CMP that was done yesterday, normal BUN and creatinine, glucose was normal, sodium 131, chloride of 97. The CBC of the patient this morning as WBC count normal, hemoglobin 12.9, platelet count normal. BMP this morning, glucose 123, normal BUN and creatinine. Sodium 135, potassium 5.2. The sputum for Gram stain of this morning, many white blood cells, moderate epithelial cells, moderate gram-positive cocci in pairs and clusters. IMAGING STUDIES: Chest x-ray that was done on 02/13/2019 shows small area of infiltration in the right lower lobe with associated pleural fluid. The radiology report also stated possibility of area of fracture. CT scan of chest was done yesterday with contrast reviewed, does not show any evidence of fracture of the rib. Small paraseptal emphysema changes of the patient were present. In addition to that granuloma in the right upper lobe posterior subsegment with some pleural thickening, acute infiltration and consolidation was noted, mass-like lesion pleural based with the addition of patchy infiltration surrounding that, moderate size in the right lower lobe. A small [place], [place] REPORT OF CONSULTATION NAME: HIMANSHU LOPEZ UNIT #: [id number] ROOM: 403 DOCTOR: SEBASTIAN SPENCER MD,[facility] BIRTHDATE: [birth year] right pleural fluid, was also seen. IMPRESSION: 1. The patient will be currently admitted to the hospital with evidence of acute pneumonia was noted most likely resulting in hemoptysis which was noted mild at this time. 2. The patient with symptoms of GI tract with low sodium resulting from intravascular volume depletion. 3. Minimal anemia as well. 4. History of significant occupational work and history of chronic nicotine abuse with paraseptal emphysema, but there was no evidence of acute exacerbation of chronic obstructive pulmonary disease. PLAN OF MANAGEMENT: Monitor sputum for Gram stain and culture at this time. Monitor respiratory status, hemoptysis. Fiberoptic bronchoscopy would be done for this patient. The patient's hemoptysis persisted, at this time, conservative management will be needed. Bronchodilator will be continued. Supportive therapy, plan of treatment, plan of management. It will be alright to continue with Lovenox and aspirin at this time, it does not need to be hold. Viral assessment and the assessment of the pneumonia and hemoptysis will be ordered. Other therapy, plan of management, additional treatment changes will be ordered based on the progression of his illness. Thank you for allowing me to participate in the care of this patient. ELIANA CORTES MD CM:CONSTR:REPORT OF CONSULTATION 1535 02/15/19 0419 interface
--- NOTE | ~2019-02-13 | PROC NOTE ---
[place], [place] PROCEDURE NOTE NAME: [facility]OPEZ [id number] UNIT #: [id number] ROOM: 425 DOCTOR: SEBASTIAN SPENCER MD,ELINAA BIRTHDATE: [birth year] DOS: 02/19/2019 PROCEDURE: Chemical pleurodesis. PREOPERATIVE DIAGNOSIS: Loculated pleural fluid secondary to acute pneumonia. POSTOPERATIVE DIAGNOSIS: Loculated pleural fluid secondary to acute pneumonia. COMPLICATIONS: None. PROCEDURE DESCRIPTION: The patient is informed about the procedure. The chest was clamped. The Cathflo, which is a 4 mg total mixed in 50 mL normal saline injected through the chest in sterile manner. Additional 100 mL of normal saline was injected into the pleural space. The chest tube will be clamped for 1 hour and then dissection will be resumed as well. Chest x-ray done in the morning. Procedure well tolerated without any complications. ELIANA CORTES MD CM:PROCNOTE:PROCEDURE NOTE [id number] ELIANA SPENCER MD
--- NOTE | ~2019-02-13 | PR ---
[place], [place] PROGRESS NOTE NAME: HIMANSHU LOPEZ UNIT #: [id number] ROOM: 425 DOCTOR: ELIANA LEVINE MD BIRTHDATE: [birth year] DOS: 02/26/2019 PULMONARY PROGRESS NOTE SUBJECTIVE: The patient noted comfortable at this time, resting on the bed without any acute distress. He has not been noted any symptoms of chest pain. Coughing has been noted absent. Denies symptoms of nausea, vomiting, diarrhea, or abdominal pain. He was given packed RBC and blood transfusion yesterday for the anemia and GI bleeding, and octreotide drip. The patient was also receiving intravenous vancomycin as well for his MRSA pneumonia. Remaining systems were reviewed. They were noted all negative. OBJECTIVE: VITAL SIGNS: Normal temperature, respiratory rate of 20, heart rate 74, blood pressure 137/80. The pulse oxygen saturation on room air 95% saturation. HEENT: Head was atraumatic. Eyes nonicterus. NECK: Supple. CARDIOVASCULAR: S1, S2 is audible. LUNGS: The patient was noted without any crackle, rhonchi, or wheezing. The breaths are noted clear bilaterally. ABDOMEN: Soft and nontender. EXTREMITIES: No acute edema. MUSCULOSKELETAL: Without any acute deformity. CENTRAL NERVOUS SYSTEM: The patient's cranial nerves 2-12 intact. LABORATORY DATA: CBC of 02/26/2019, WBC count 4.3, hemoglobin 8, and platelet count was 267,000. CBC yesterday prior to blood transfusion, hemoglobin 7.2, hematocrit 22.0. IMPRESSION: 1. Favorable. Improvement in hemoglobin and hematocrit after blood transfusion. 2. Resolving acute pneumonia with an methicillin-resistant staphylococcus aureus, resolved pleural effusion. 3. Acute peptic ulcer bleeding, currently treated with octreotide drip and other medical management. PLAN OF MANAGEMENT: The suture of the previous chest tube was removed at the bedside. Continue antibiotic and completion of total course of pneumonia management with current parapneumonic pleural fluid. Usual care. Close monitor of hemoglobin and hematocrit continued. So far at this time does not seem to require any surgical intervention. Hemoglobin and hematocrit remained stable. [place], [place] PROGRESS NOTE NAME: HIMANSHU LOPEZ UNIT #: [id number] ROOM: 425 DOCTOR: AZIZ ELIANA SPENCER MD BIRTHDATE: [birth year] ELIANA CORTES MD CM:CAITLYN [phone] ELIANA SPENCER MD 06/23/19 1310 interface
[2019-02-13 15:47] VITALS: BP 170/66; BP 194/72
[2019-02-13 16:40] VITALS: BP 170/75
[2019-02-13 17:05] LABS: BASO % 0.2 % (0.0-1.0); HEMATOCRIT 40.1 % (42.0-52.0); HEMOGLOBIN 14.1 g/dl (14.0-18.0); LYMPH # 0.6 10*3/uL (1.3-4.4); MEAN CELL VOLUME 103.1 fl (80.0-94.0); MEAN CORPUSCULAR HGB 36.2 pg (27.0-31.0); MEAN CORPUSCULAR HGB CONC 35.2 g/dl (33.0-37.0); MEAN PLATELET VOLUME 10.1 fl (9.6-12.3); MONO # 0.9 10*3/uL (0.1-1.0); MONO % 9.1 % (3.0-9.0); NEUT % 84.2 % (47.0-73.0); PLATELET COUNT AUTOMATED 144 10*3/uL (130-400); RED BLOOD COUNT 3.89 10*6/uL (4.50-5.90); RED CELL DISTRI WIDTH 13.8 % (0-14.5); WHITE BLOOD COUNT 9.5 10*3/uL (4.8-10.8)
[2019-02-13 17:14] LABS: ACT PARTIAL THROMBO TIME 26.3 SECONDS (20.8-31.5); INTERNATIONAL NORM RATIO 0.9 (2.0-3.5)
[2019-02-13 17:20] LABS: ALBUMIN 2.8 gm/dl (3.1-4.5); ALKALINE PHOSPHATASE 77 U/L (45-117); BUN 19 mg/dl (7-24); CHLORIDE 97 mmol/L (98-107); CREATININE 0.86 mg/dL (0.70-1.30); LIPASE 104 U/L (73-393); POTASSIUM 4.5 mmol/L (3.5-5.1); SGOT/AST 21 IU/L (3-35); SGPT/ALT 35 U/L (12-78); SODIUM 131 mmol/L (136-145); TOTAL PROTEIN 8.8 gm/dL (6.4-8.2)
[2019-02-13 17:29] LABS: TROPONIN I < 0.015 ng/ml (<0.045)
[2019-02-13 18:18] VITALS: BP 139/52
--- NOTE | 2019-02-13 19:06 | NUR ---
PT RATES PAIN AT 5/10 DOWN FROM 9/10 UPON ARRIVAL
[2019-02-13 19:50] VITALS: BP 157/59
--- NOTE | 2019-02-13 20:22 | NUR ---
IV ZOFRAN ADMINISTERED PER PRN ORDER FOR C/O NAUSEA. IV LEVAQUIN COMPLETE AT THIS TIME. FLUID BOLUS INITIATED. PATIENT TAKEN OFF FLOOR TO CT BY PIERRE.
--- NOTE | 2019-02-13 20:28 | NUR ---
NOTIFIED OF CONSULT. DISCUSSED XRAY RESULTS. AWARE THAT PATIENT IS GOING DOWN FOR CT CHEST BUT UNSURE HOW LONG IT WILL BE UNTIL TEST IS READ. STATES HE WILL SEE PATIENT IN AM AND TO CALL WITH RESULTS OF CT CHEST
[2019-02-13] MEDS ORDERED: ASPIRIN ADULT L81 M1 PO (21:49)
--- NOTE | 2019-02-13 21:57 | NUR ---
PER , GIVE 2 BOLUSES FOR SEPSIS PROTOCOL.
--- NOTE | 2019-02-13 22:47 | NUR ---
EARLIER NORCO INEFFECTIVE FOR R RIB PAIN. PATIENT STILL RATING PAIN 7/10. IV MORPHINE ADMINISTERED SLOWLY PER PRN ORDER. WILL MONITOR EFFECTIVENESS. CALL LIGHT LEFT IN REACH.
--- NOTE | 2019-02-13 23:02 | NUR ---
DR CORTES CALLED AT THIS TIME. BRIEF VOICEMAIL LEFT PER ROLALONSO INSTRUCTIONS.
[2019-02-14] VITALS: BP 163/62
[2019-02-14 02:00] VITALS: BP 156/70
[2019-02-14 07:36] LABS: BASO % 0.1 % (0.0-1.0); HEMATOCRIT 38.8 % (42.0-52.0); HEMOGLOBIN 12.9 g/dl (14.0-18.0); LYMPH # 0.3 10*3/uL (1.3-4.4); LYMPH % 4.3 % (27.0-41.0); MEAN CORPUSCULAR HGB 34.6 pg (27.0-31.0); MEAN CORPUSCULAR HGB CONC 33.2 g/dl (33.0-37.0); MONO # 0.5 10*3/uL (0.1-1.0); MONO % 6.6 % (3.0-9.0); NEUT # 6.1 10*3/uL (2.3-7.9); NEUT % 87.6 % (47.0-73.0); PLATELET COUNT AUTOMATED 127 10*3/uL (130-400); RED BLOOD COUNT 3.73 10*6/uL (4.50-5.90); RED CELL DISTRI WIDTH 13.8 % (0-14.5)
[2019-02-14 07:41] LABS: BUN 16 mg/dl (7-24); CHLORIDE 102 mmol/L (98-107); CHOLESTEROL 103 mg/dL (<200); CREATININE 0.73 mg/dL (0.70-1.30); HDL CHOLESTEROL 42 mg/dl (40-60); LDL CHOLESTEROL 51 mg/dL (9-159); PHOSPHOROUS 2.6 mg/dL (2.5-4.9); POTASSIUM 5.2 mmol/L (3.5-5.1); SODIUM 135 mmol/L (136-145); TRIGLYCERIDES 48 mg/dl (<150); VLDL CHOLESTEROL 10 mg/dL (6-40)
--- NOTE | 2019-02-14 09:00 | NUR ---
PT SEEN AT THIS TIME. PT SITTING UP IN BED EATING BREAKFAST. PT HAS NO COMPLAINTS AT THIS TIME. PT DENIES PAIN, N/V/D. NO SOB NOTED. BED IN LOWEST LOCKED POSITION AND CALL LIGHT WITHIN REACH. WILL CONTINUE TO MONITOR.
--- NOTE | 2019-02-14 09:00 | NUR ---
Color Specialist in to talk to patient. Patient states lives at home with girlfriend. There are few steps in the home. Physician: none Pharmacy: [facility] health services: none Patient's level of ADLs: BEDFAST Patient has working utilities: all working DME: none Follow-up physician's appointment after d/c: will be made by hospitalist nurse director upon discharge Does patient want to access PORTAL?: no Discharge plan discussed with patient, patient lives at home with girlfriend, he states he is independent in adls and ambulation, drives, patient states he will be going home when able and denies any home needs, patient does not have a doctor and will be given a list of doctors to follow up with. DAVID SPANGLER
[2019-02-14 12:00] VITALS: BP 156/70
--- NOTE | 2019-02-14 13:10 | NUR ---
PT COMPLAINS OF RIB/SIDE PAIN RATED AT A 7. PRN MORPHINE GIVEN AT THIS TIME. WILL MONITOR FOR EFFECTIVENESS.
--- NOTE | 2019-02-14 14:13 | NUR ---
PT IS REST COMFORTABLY IN BED. PRN MORPHINE CONSIDERED EFFECTIVE.
[2019-02-14 15:30] VITALS: BP 114/70
[2019-02-14 16:00] VITALS: BP 141/54
[2019-02-14 17:19] LABS: BILIRUBIN NEGATIVE (NEGATIVE); BLOOD NEGATIVE (NEGATIVE); CLARITY SL CLOUDY (CLEAR); COLOR YELLOW (YELLOW); GLUCOSE TRACE (NEGATIVE); KETONE NEGATIVE (NEGATIVE); LEUKO ESTERASE NEGATIVE (NEGATIVE); NITRITE NEGATIVE (NEGATIVE)
[2019-02-14 17:30] LABS: BACTERIA 3+; MUCOUS 1+
[2019-02-14 20:00] VITALS: BP 152/56
--- NOTE | 2019-02-14 23:30 | NUR ---
IV TORADOL ADMINISTERED PER ORDER FOR C/O PAIN IN R RIB RATED 7/10. WILL MONITOR EFFECTIVENESS. CALL LIGHT IN REACH.
[2019-02-15] VITALS: BP 155/61
--- NOTE | 2019-02-15 00:14 | NUR ---
PATIENT STATES EARLIER TORADOL WAS VERY EFFECTIVE FOR PAIN. PATIENT RATES PAIN 3/10. STATES TORADOL IS "WAY BETTER THAN THE MORPHINE." WILL CONTINUE TO MONITOR. CALL LIGHT LEFT IN REACH.
--- NOTE | 2019-02-15 02:08 | NUR ---
PATIENT ASLEEP IN BED. RESPIRATIONS EASY. NO S/S OF DISTRESS NOTED. WILL MONITOR. CALL LIGHT IN REACH.
[2019-02-15 04:58] LABS: BASO % 0.2 % (0.0-1.0); EOS % 0.3 % (1.0-4.0); HEMATOCRIT 36.5 % (42.0-52.0); HEMOGLOBIN 12.3 g/dl (14.0-18.0); LYMPH # 0.9 10*3/uL (1.3-4.4); LYMPH % 14.2 % (27.0-41.0); MEAN CELL VOLUME 103.7 fl (80.0-94.0); MEAN CORPUSCULAR HGB 34.9 pg (27.0-31.0); MEAN CORPUSCULAR HGB CONC 33.7 g/dl (33.0-37.0); MEAN PLATELET VOLUME 9.3 fl (9.6-12.3); MONO # 0.7 10*3/uL (0.1-1.0); MONO % 10.9 % (3.0-9.0); NEUT # 4.5 10*3/uL (2.3-7.9); NEUT % 73.7 % (47.0-73.0); PLATELET COUNT AUTOMATED 140 10*3/uL (130-400); RED BLOOD COUNT 3.52 10*6/uL (4.50-5.90); RED CELL DISTRI WIDTH 13.7 % (0-14.5); WHITE BLOOD COUNT 6.1 10*3/uL (4.8-10.8)
[2019-02-15 05:10] LABS: BUN 17 mg/dl (7-24); CHLORIDE 103 mmol/L (98-107); CREATININE 0.81 mg/dL (0.70-1.30); POTASSIUM 4.9 mmol/L (3.5-5.1); SODIUM 136 mmol/L (136-145)
--- NOTE | 2019-02-15 05:14 | NUR ---
IV TORADOL ADMINISTERED PER PRN ORDER FOR C/O PAIN IN R RIB RATED 6/10. WILL MONITOR EFFECTIVENESS. CALL LIGHT LEFT IN REACH.
--- NOTE | 2019-02-15 07:31 | NUR ---
Shift chart check completed.24 HR chart check completed.
[2019-02-15 08:00] VITALS: BP 160/59
--- NOTE | 2019-02-15 08:16 | NUR ---
ON ASSESSMENT PATIENT IS RESTING QUIETLY WITH NO RESPIRATORY DISTRESS. NO HEMOPTYSIS NOTED. NO PERIPHERAL EDEMA. SEE ALL APPROPRIATE INTERVENTIONS.
--- NOTE | 2019-02-15 09:00 | NUR ---
case management visits with patient, patient states he will be going home when able and denies any home neeeds
--- NOTE | 2019-02-15 10:24 | NUR ---
CONSENT FOR BRONCHOSCOPY SIGNED BY PT. DR FRAGOSO AND DR CORTES HAVE VISITED.
[2019-02-15 12:00] VITALS: BP 160/53
[2019-02-15 14:16] LABS: ACT PARTIAL THROMBO TIME 28.8 SECONDS (20.8-31.5)
[2019-02-15 16:00] VITALS: BP 158/65
--- NOTE | 2019-02-15 17:08 | NUR ---
PT MEDICATED WITH PO NORCO PER PRN ORDER FOR C/O RIB PAIN. WILL MONITOR EFFECTIVENESS.
--- NOTE | 2019-02-15 18:52 | NUR ---
NORCO EFFECTIVE PER PT. WILL CONTINUE TO MONITOR.
[2019-02-15 20:00] VITALS: BP 156/65
[2019-02-16] VITALS (9 sets, daily range): BP systolic 145–185; BP diastolic 51–86
[2019-02-16 05:56] LABS: BASO % 0.4 % (0.0-1.0); EOS % 0.2 % (1.0-4.0); HEMATOCRIT 36.4 % (42.0-52.0); HEMOGLOBIN 12.4 g/dl (14.0-18.0); LYMPH # 0.7 10*3/uL (1.3-4.4); LYMPH % 12.8 % (27.0-41.0); MEAN CELL VOLUME 101.4 fl (80.0-94.0); MEAN CORPUSCULAR HGB 34.5 pg (27.0-31.0); MEAN CORPUSCULAR HGB CONC 34.1 g/dl (33.0-37.0); MONO # 0.7 10*3/uL (0.1-1.0); MONO % 11.8 % (3.0-9.0); NEUT # 4.2 10*3/uL (2.3-7.9); NEUT % 74.3 % (47.0-73.0); PLATELET COUNT AUTOMATED 179 10*3/uL (130-400); RED BLOOD COUNT 3.59 10*6/uL (4.50-5.90); RED CELL DISTRI WIDTH 13.2 % (0-14.5); WHITE BLOOD COUNT 5.7 10*3/uL (4.8-10.8)
[2019-02-16 06:18] LABS: BUN 10 mg/dl (7-24); CHLORIDE 100 mmol/L (98-107); CREATININE 0.62 mg/dL (0.70-1.30); SODIUM 134 mmol/L (136-145)
[2019-02-16 06:19] LABS: POTASSIUM 3.6 mmol/L (3.5-5.1)
--- NOTE | 2019-02-16 07:29 | NUR ---
PATIENT NOT PRESENT FOR MORNING REPORT HE IS DOWN IN SURGERY FOR BRONCHOSCOPY.
[2019-02-16 08:09] LABS: RHEUMATOID ARTHRITIS FACTOR 18.3 IU/mL (0.0-13.9)
--- NOTE | 2019-02-16 09:00 | NUR ---
case management attempts to visit with patient, patient out of room for procedure, will see at a later time
--- NOTE | 2019-02-16 09:56 | NUR ---
PT BACK TO ROOM FOLLOWING BRONCH. CALL LIGHT IN REACH. VSS.
--- NOTE | 2019-02-16 10:52 | NUR ---
MANUAL BLOOD PRESSURE WAS TAKEN TO FOLLOW UP THE MANAGER ACADEMIC STATES THAT SBP WAS IN THE 180'S. MANUAL PRESSURE 162/70
[2019-02-16 11:53] LABS: BF MACROPHAGES 4 %; BF NEUTROPHILS 96 %
--- NOTE | 2019-02-16 14:20 | NUR ---
PATIENT COMPLAINS OF PAIN THROUGHOUT AND REQUESTS PRN INJECTION. PRN KETOROLAC GIVEN AND WILL CONTINUE TO MONITOR FOR EFFECTIVENESS.
--- NOTE | 2019-02-16 14:55 | NUR ---
PATIENT SITTING UP IN BED AND STATES THAT HIS PAIN HAS SIGNIFICANTLY DECREASED AND IS NOW RATED 3/10.
[2019-02-16 15:06] LABS: IGG SUBCLASS 1 127 mg/dL (248-810); IGG SUBCLASS 2 1901 mg/dL (130-555); IGG SUBCLASS 3 37 mg/dL (15-102); IGG SUBCLASS 4 26 mg/dL (2-96); IMMUNOGLOBULIN G, QNT 2018 mg/dL (700-1600)
[2019-02-16 16:07] LABS: ALDOLASE 002030 5.1 U/L (3.3-10.3); ANGIOTENSIN-CONVERTING ENZYME <15 U/L (14-82); ATYPICAL PANCA <1:20 titer (Neg:<1:20); CYTOPLASMIC (C-ANCA) <1:20 titer (Neg:<1:20); IMMUNOGLOBULIN M, QNT 25 mg/dL (20-172)
--- NOTE | 2019-02-16 20:00 | NUR ---
SLEEPING. NO DISTRESS NOTED. RESPIRATIONS EASY. LUNGS DIMINISHED WITH RHONCHI. PULSE OX 95% RA. INFREQUENT COUGH, DENIES HEMOPTYSIS. OFFERED AND EDUCATED REGARDING TEDS, DECLINED. CALL LIGHT WITHIN REACH. NO VOICED COMPLAINTS
--- NOTE | 2019-02-16 20:48 | NUR ---
24 HR chart check completed.
[2019-02-16 22:09] LABS: ADENOVIRUS Negative (Negative); INFLUENZA A Negative (Negative); INFLUENZA B Negative (Negative); METAPNEUMOVIRUS Negative (Negative); PARAINFLUENZA 1 Negative (Negative); PARAINFLUENZA 2 Negative (Negative); PARAINFLUENZA 3 Negative (Negative); RHINOVIRUS Negative (Negative); RSV A Negative (Negative); RSV B Negative (Negative)
[2019-02-17] VITALS: BP 161/70
--- NOTE | 2019-02-17 | NUR ---
SLEEPING. NO ACUTE DISTRESS NOTED. RESPIRATIONS EASY. VSS. CALL LIGHT WITHIN REACH
--- NOTE | 2019-02-17 03:00 | NUR ---
CONTINUES TO SLEEP WITH NO DISTRESS NOTED. RESPIRATIONS EASY. CALL LIGHT WITHIN REACH
--- NOTE | 2019-02-17 06:00 | NUR ---
SLEPT THROUGHTOUT NIGHT WITH NO DISTRESS NOTED. RESPIRATIONS EASY. CALL LIGHT WITHIN REACH. NO VOICED COMPLAINTS THIS SHIFT
[2019-02-17 08:35] VITALS: BP 166/72
--- NOTE | 2019-02-17 09:28 | NUR ---
IN PTs ROOM FOR CHEST TUBE INSERTION.
--- NOTE | 2019-02-17 10:07 | NUR ---
PT TOLERATED CHEST TUBE INSERTION WELL. IMMEDIATELY HAD 160CC OUT FOR BLOODY FLUID. WILL MONITOR. CALL LIGHT IN REACH. CHEST TUBE ON -20 SETTING PER VERBAL ORDER BY .
[2019-02-17 11:26] LABS: BODY FLUID WBC 1234 /uL
--- NOTE | 2019-02-17 11:49 | NUR ---
CLARIFIED ORDERS WITH REGARDING CHEST TUBE. SETTINGS TO BE -20 WITH WALL SUCTION TO BE MAINTAINED. SEE ORDRES.
[2019-02-17 12:00] VITALS: BP 143/59
[2019-02-17 12:33] LABS: BF LYMPHOCYTES 9 %; BF MACROPHAGES 28 %; BF MESOTHELIALS 1 %; BF NEUTROPHILS 62 %
[2019-02-17 13:56] LABS: BASO % 0.4 % (0.0-1.0); EOS % 0.2 % (1.0-4.0); HEMATOCRIT 37.5 % (42.0-52.0); HEMOGLOBIN 13.2 g/dl (14.0-18.0); LYMPH # 1.1 10*3/uL (1.3-4.4); LYMPH % 12.8 % (27.0-41.0); MEAN CELL VOLUME 101.9 fl (80.0-94.0); MEAN CORPUSCULAR HGB 35.9 pg (27.0-31.0); MEAN CORPUSCULAR HGB CONC 35.2 g/dl (33.0-37.0); MEAN PLATELET VOLUME 9.6 fl (9.6-12.3); MONO # 0.8 10*3/uL (0.1-1.0); MONO % 9.1 % (3.0-9.0); NEUT # 6.5 10*3/uL (2.3-7.9); NEUT % 76.9 % (47.0-73.0); PLATELET COUNT AUTOMATED 213 10*3/uL (130-400); RED BLOOD COUNT 3.68 10*6/uL (4.50-5.90); RED CELL DISTRI WIDTH 13.4 % (0-14.5); WHITE BLOOD COUNT 8.4 10*3/uL (4.8-10.8)
[2019-02-17 14:20] LABS: ALBUMIN 2.1 gm/dl (3.1-4.5); ALKALINE PHOSPHATASE 81 U/L (45-117); BUN 8 mg/dl (7-24); CHLORIDE 100 mmol/L (98-107); CREATININE 0.67 mg/dL (0.70-1.30); POTASSIUM 3.7 mmol/L (3.5-5.1); SGOT/AST 11 IU/L (3-35); SGPT/ALT 20 U/L (12-78); SODIUM 133 mmol/L (136-145); TOTAL PROTEIN 7.3 gm/dL (6.4-8.2)
[2019-02-17 15:05] LABS: ACID FAST SPEC PROCESSING Concentration (.)
[2019-02-17 15:05] LABS: ACID FAST SPEC PROCESSING Concentration (.)
--- NOTE | 2019-02-17 15:20 | NUR ---
PATIENT C/O PAIN 6/10 TO SITE OF CHEST TUBE AND REQUESTED PRN MEDICATION FOR COMFORT. PRN TORADOL GIVEN AND WILL CONTINUE TO MONITOR.
[2019-02-17 16:00] VITALS: BP 145/56
--- NOTE | 2019-02-17 16:00 | NUR ---
PATIENT EXPRESSED NO PAIN 0/10 AND IS COMFORTABLE AT THIS TIME. CHEST TUBE ASSESSED AT THIS TIME AND REMAINS INTACT DRAINING WITH TOTAL VOLUME AT 770ML. PATIENT EXPRESSED NO NEEDS AT THIS TIME AND CALL LIGHT IN REACH.
[2019-02-17 20:00] VITALS: BP 145/57
--- NOTE | 2019-02-17 20:58 | NUR ---
PATIENT RECEIVED NORCO FOR PAIN IN RIGHT BACK AT CHEST TUBE SITE.
--- NOTE | 2019-02-17 22:28 | NUR ---
PATIENT RECEIVED RESTORIL FOR SLEEP AID.
[2019-02-18] VITALS: BP 151/65
--- NOTE | 2019-02-18 04:06 | NUR ---
CHART CHECK COMPLETED.
[2019-02-18 06:28] LABS: BASO % 0.3 % (0.0-1.0); EOS # 0.1 10*3/uL (0.0-0.4); EOS % 1.8 % (1.0-4.0); HEMATOCRIT 33.8 % (42.0-52.0); HEMOGLOBIN 11.5 g/dl (14.0-18.0); LYMPH # 0.8 10*3/uL (1.3-4.4); LYMPH % 13.9 % (27.0-41.0); MEAN CELL VOLUME 101.8 fl (80.0-94.0); MEAN CORPUSCULAR HGB 34.6 pg (27.0-31.0); MEAN PLATELET VOLUME 9.7 fl (9.6-12.3); MONO # 0.6 10*3/uL (0.1-1.0); MONO % 10.4 % (3.0-9.0); NEUT # 4.4 10*3/uL (2.3-7.9); NEUT % 72.9 % (47.0-73.0); PLATELET COUNT AUTOMATED 197 10*3/uL (130-400); RED BLOOD COUNT 3.32 10*6/uL (4.50-5.90); RED CELL DISTRI WIDTH 13.4 % (0-14.5)
[2019-02-18 06:38] LABS: BUN 7 mg/dl (7-24); CHLORIDE 102 mmol/L (98-107); CREATININE 0.55 mg/dL (0.70-1.30); POTASSIUM 3.5 mmol/L (3.5-5.1); SODIUM 137 mmol/L (136-145)
[2019-02-18 08:00] VITALS: BP 161/60
--- NOTE | 2019-02-18 08:52 | NUR ---
Awae and alert. C/o pain 02/[address] Saavedra in.
[2019-02-18 12:00] VITALS: BP 150/52
--- NOTE | 2019-02-18 13:41 | NUR ---
Medicated for post procedural pain. see E-mar.
--- NOTE | 2019-02-18 14:04 | NUR ---
CT clamped until 1430 then to resume suction at 20cm.
--- NOTE | 2019-02-18 14:41 | NUR ---
20cm suction resumed to chest tube.
--- NOTE | 2019-02-18 15:32 | NUR ---
24 HR chart check completed.
[2019-02-18 16:00] VITALS: BP 158/58
--- NOTE | 2019-02-18 16:00 | NUR ---
VISITING WITH FAMILY
--- NOTE | 2019-02-18 16:30 | NUR ---
RESTING WITH HOB ELEVATED. RESPIRATIONS EASY. LUNGS DIMINISHED. PULSE OX 94% RA. NON-PROD COUGH. RIGHT POSTERIOR CHEST TUBE MAINTAINED TO -20 CM WALL SUCTION, BLOODY DRAINAGE NOTED IN TUBE. CALL LIGHT WITHIN REACH. NO VOICED COMPLAINTS
--- NOTE | 2019-02-18 16:54 | NUR ---
MEDICATED WITH TORADOL PER PRN ORDER FOR COMPLAINTS OF RIGHT RIB PAIN RATING A 9. C/O SHORTNESS OF BREATH; PULSE OX 91% RA, O2 APPLIED AT 2L PULSE OX 94%. PATIENT VOICES FEELINGS OF IMPROVEMENT. CALL LIGHT WITHIN REACH. WILL MONITOR
--- NOTE | 2019-02-18 18:00 | NUR ---
SITTING UP IN BED PLAYING CARDS. O2 IN USE. CALL LIGHT WITHIN REACH. NO FURTHER VOICED COMPLAINTS
[2019-02-18 20:00] VITALS: BP 152/55
[2019-02-19] VITALS: BP 160/57
--- NOTE | 2019-02-19 07:09 | NUR ---
SLEEPING DURING REPORT
[2019-02-19 08:00] VITALS: BP 161/60
[2019-02-19 08:31] LABS: BASO % 0.3 % (0.0-1.0); EOS # 0.1 10*3/uL (0.0-0.4); EOS % 1.9 % (1.0-4.0); HEMATOCRIT 29.6 % (42.0-52.0); LYMPH % 15.9 % (27.0-41.0); MEAN CELL VOLUME 103.1 fl (80.0-94.0); MEAN CORPUSCULAR HGB 34.8 pg (27.0-31.0); MEAN CORPUSCULAR HGB CONC 33.8 g/dl (33.0-37.0); MEAN PLATELET VOLUME 9.1 fl (9.6-12.3); MONO # 0.4 10*3/uL (0.1-1.0); NEUT # 4.7 10*3/uL (2.3-7.9); NEUT % 74.4 % (47.0-73.0); PLATELET COUNT AUTOMATED 231 10*3/uL (130-400); RED BLOOD COUNT 2.87 10*6/uL (4.50-5.90); RED CELL DISTRI WIDTH 13.4 % (0-14.5); WHITE BLOOD COUNT 6.3 10*3/uL (4.8-10.8)
[2019-02-19 08:44] LABS: ALBUMIN 1.6 gm/dl (3.1-4.5); ALKALINE PHOSPHATASE 57 U/L (45-117); BUN 16 mg/dl (7-24); CHLORIDE 103 mmol/L (98-107); CREATININE 0.61 mg/dL (0.70-1.30); POTASSIUM 3.6 mmol/L (3.5-5.1); SGOT/AST 7 IU/L (3-35); SGPT/ALT 14 U/L (12-78); SODIUM 136 mmol/L (136-145); TOTAL PROTEIN 6.3 gm/dL (6.4-8.2)
[2019-02-19 12:00] VITALS: BP 127/51
--- NOTE | 2019-02-19 14:07 | NUR ---
DR CORTES HAS ROUNDED AND PLACED CATHFLOINTO CHEST TUBE. PATIENT TOLERATED WELL. CLAMPED FOR 1 HOUR AND CANISTER CHANGED
--- NOTE | 2019-02-19 15:41 | NUR ---
24 HR chart check completed.
--- NOTE | 2019-02-19 15:41 | NUR ---
24 HR chart check completed.
[2019-02-19 16:00] VITALS: BP 116/56; BP 146/53
--- NOTE | 2019-02-19 16:15 | NUR ---
SITTING UP IN BED. RESPIRATIONS EASY. LUNGS DIMINISHED. PULSE OX 97% RA, O2 PRESENT AT BEDSIDE FOR PRN USE. CHEST TUBE NOTED TO RIGHT POSTERIOR BACK, INTACT AND CONNECTED TO -20 CM WALL SUCTION. CALL LIGHT WITHIN REACH. NO VOICED COMPLAINTS
--- NOTE | 2019-02-19 16:45 | NUR ---
MEDICATED WITH NORCO PER PRN ORDER FOR COMPLAINTS OF PAIN RATING A 5 TO CHEST TUBE INSERTION SITE. CALL LIGHT WITHIN REACH. WILL MONITOR FOR EFFECTIVENESS
--- NOTE | 2019-02-19 18:00 | NUR ---
SITTING UP AT BEDSIDE. NO ACUTE DISTRESS NOTED. RESPIRATIONS EASY. STATES RELIEF FROM EARLIER MEDS. CALL LIGHT WITHIN REACH. NO FURTHER VOICED COMPLAINTS
[2019-02-19 20:00] VITALS: BP 140/54
[2019-02-20] VITALS: BP 142/49
--- NOTE | 2019-02-20 00:14 | NUR ---
PATIENT RECEIVED A NORCO FOR PAIN IN THE RIGHT BACK RATED 7/10.
[2019-02-20 07:16] LABS: BUN 8 mg/dl (7-24); CHLORIDE 107 mmol/L (98-107); CREATININE 0.61 mg/dL (0.70-1.30); POTASSIUM 4.2 mmol/L (3.5-5.1); SODIUM 140 mmol/L (136-145)
[2019-02-20 07:24] LABS: BASO % 0.6 % (0.0-1.0); EOS # 0.2 10*3/uL (0.0-0.4); EOS % 4.4 % (1.0-4.0); HEMATOCRIT 26.2 % (42.0-52.0); HEMOGLOBIN 8.7 g/dl (14.0-18.0); LYMPH % 19.7 % (27.0-41.0); MEAN CELL VOLUME 104.8 fl (80.0-94.0); MEAN CORPUSCULAR HGB 34.8 pg (27.0-31.0); MEAN CORPUSCULAR HGB CONC 33.2 g/dl (33.0-37.0); MEAN PLATELET VOLUME 9.6 fl (9.6-12.3); MONO # 0.5 10*3/uL (0.1-1.0); MONO % 9.8 % (3.0-9.0); NEUT # 3.2 10*3/uL (2.3-7.9); NEUT % 65.1 % (47.0-73.0); PLATELET COUNT AUTOMATED 268 10*3/uL (130-400); RED CELL DISTRI WIDTH 13.3 % (0-14.5)
[2019-02-20 08:00] VITALS: BP 129/50
--- NOTE | 2019-02-20 09:00 | NUR ---
case management received a message that patient would need iv antibiotics at home, asked if he was able to give them to himself or if there was someone in the house that could learn, patient was unsure about this, also discussed with him coming to the hospital as an outpatient to receive these, patient stated he would be able to come 2 times a day, but not three. also discussed with him the cost of the medication, patient only has medicare insurance, informed him that case management will check with [facility] to see the cost of these medications at home, patient's information faxed to [facility] to check on cost of medications
--- NOTE | 2019-02-20 09:30 | NUR ---
DR. DURAN MADE AWARE DR. CORTES PLAN TO DISCHARGE TOMORROW ON IV ANTIBIOTICS FOR A TOTAL OF 15 DAYS, NEED ORDER FOR PICC LINE/MIDLINE
--- NOTE | 2019-02-20 09:54 | NUR ---
Shift chart check completed.
--- NOTE | 2019-02-20 09:54 | NUR ---
PT CHEST TUBE TO WATER SEAL FOR PATIENT TO USE THE BATHROOM, PT AWARE TO NOTIFY STAFF WHEN DONE IN BATHROOM SO CHEST TUBE CAN BE PLACED BACK TO LIWS
--- NOTE | 2019-02-20 11:51 | NUR ---
case management received a call from Radha at [facility], patient does not have insurance to cover home iv antibiotics, the cost of 15 day treatment is $1400. case management will discuss another option with patient
[2019-02-20 12:00] VITALS: BP 143/50
--- NOTE | 2019-02-20 13:49 | NUR ---
DISCUSS HOME IV ANTIBIOTICS WITH [facility] HATCHERY HELPER, NOTIFIED HER THAT PATIENT NEEDS A TOTAL OF 15 DAYS OF VANC, INCLUDING WHAT HE HAS RECEIVED HERE, SO TOTAL OF 10 DAYS MOST LIKELY AN OUTPATIENT
--- NOTE | 2019-02-20 14:40 | NUR ---
PT REQUESTED NORCO FOR PAIN AROUND CHEST TUBE
--- NOTE | 2019-02-20 15:30 | NUR ---
NORCO EFFECTIVE FOR PAIN
[2019-02-20 16:00] VITALS: BP 131/42
[2019-02-20 20:00] VITALS: BP 160/59
--- NOTE | 2019-02-20 20:02 | NUR ---
24 HR chart check completed.
--- NOTE | 2019-02-20 21:00 | NUR ---
RESTING IN BED, NO ACUTE DISTRESS NOTED. RESPIRATIONS EASY. LUNGS DIMINISHED. PULSE OX 96% RA. INFREQ NON-PROD COUGH. CHEST TUBE MAINTAINED TO -20 CM WALL SUCTION. CALL LIGHT WITHIN REACH. NO VOICED COMPLAINTS
--- NOTE | 2019-02-20 21:41 | NUR ---
REQUESTED AND RECEIVED NORCO PER PRN ORDER FOR COMPLAINTS OF PAIN TO CHEST TUBE INSERTION SITE RATING A 6. CALL LIGHT WITHIN REACH. WILL MONITOR FOR EFFECTIVENESS
--- NOTE | 2019-02-20 21:54 | NUR ---
MEDICATED WITH RESTORIL PER PRN ORDER TO ASSIST WITH SLEEP. WILL MONITOR FOR EFFECTIVENESS
--- NOTE | 2019-02-20 23:00 | NUR ---
MEDS EFFECTIVE. PATIENT SLEEPING
[2019-02-21] VITALS: BP 140/54; BP 153/52
--- NOTE | 2019-02-21 00:30 | NUR ---
SLEEPING. NO ACUTE DISTRESS NOTED. RESPIRATIONS EASY. VSS. CALL LIGHT WITHIN REACH
--- NOTE | 2019-02-21 05:30 | NUR ---
SLEPT THROUGHOUT NIGHT WITH NO ACUTE DISTRESS NOTED. RESPIRATIONS EASY. CHEST TUBE MAINTAINED WITH NO DRAINAGE NOTED THIS SHIFT. MEDICATED WITH NORCO PER PRN ORDER FOR COMPLAINTS OF PAIN TO CHEST TUBE INSERTION SITE RATING A 4. CALL LIGHT WITHIN REACH. WILL MONITOR FOR EFFECTIVENESS
--- NOTE | 2019-02-21 06:30 | NUR ---
MEDS APPEAR EFFECTIVE. SLEEPING. CHEST TUBE MAINTAINED. CALL LIGHT WITHIN REACH
[2019-02-21 06:45] LABS: BASO % 0.5 % (0.0-1.0); EOS # 0.2 10*3/uL (0.0-0.4); EOS % 5.4 % (1.0-4.0); HEMATOCRIT 23.6 % (42.0-52.0); HEMOGLOBIN 7.8 g/dl (14.0-18.0); LYMPH # 0.8 10*3/uL (1.3-4.4); LYMPH % 18.5 % (27.0-41.0); MEAN CELL VOLUME 104.9 fl (80.0-94.0); MEAN CORPUSCULAR HGB 34.7 pg (27.0-31.0); MEAN CORPUSCULAR HGB CONC 33.1 g/dl (33.0-37.0); MEAN PLATELET VOLUME 9.3 fl (9.6-12.3); MONO # 0.5 10*3/uL (0.1-1.0); MONO % 11.2 % (3.0-9.0); NEUT # 2.6 10*3/uL (2.3-7.9); NEUT % 63.9 % (47.0-73.0); PLATELET COUNT AUTOMATED 255 10*3/uL (130-400); RED BLOOD COUNT 2.25 10*6/uL (4.50-5.90); RED CELL DISTRI WIDTH 13.2 % (0-14.5); WHITE BLOOD COUNT 4.1 10*3/uL (4.8-10.8)
[2019-02-21 07:10] LABS: BUN 4 mg/dl (7-24); CHLORIDE 105 mmol/L (98-107); CREATININE 0.59 mg/dL (0.70-1.30); POTASSIUM 3.7 mmol/L (3.5-5.1); SODIUM 140 mmol/L (136-145)
[2019-02-21 08:00] VITALS: BP 110/60; BP 142/52
--- NOTE | 2019-02-21 09:00 | NUR ---
case management visits with patient, again discussed with him a discharge plan including a short term senior living for iv antibiotics, patient declined, stated he is willing to come into the hospital as an outpatient 2 times a day, but no more. case mangaement will follow with patient
[2019-02-21 12:00] VITALS: BP 150/48
[2019-02-21 16:00] VITALS: BP 168/61
[2019-02-21 20:00] VITALS: BP 178/59
--- NOTE | 2019-02-21 20:31 | NUR ---
TYLENOL GIVEN PER ORDER FOR LEFT RIB PAIN RATED "5-6"
--- NOTE | 2019-02-21 21:34 | NUR ---
RESTORIL GIVEN PER ORDER FOR INSOMNIA. TYLENOL WAS EFFECTIVE FOR DISCOMFORT.
--- NOTE | 2019-02-21 22:30 | NUR ---
RESTORIL EFFECTIVE SLEEPING.
--- NOTE | 2019-02-21 23:18 | NUR ---
24 HR chart check completed.
[2019-02-22] VITALS (15 sets, daily range): BP systolic 129–160; BP diastolic 44–55
--- NOTE | 2019-02-22 04:00 | NUR ---
SLEEPING NO ACUTE DISTRESS NOTED.
[2019-02-22 07:44] LABS: BASO % 0.7 % (0.0-1.0); EOS # 0.1 10*3/uL (0.0-0.4); EOS % 3.1 % (1.0-4.0); HEMATOCRIT 19.6 % (42.0-52.0); HEMOGLOBIN 6.5 g/dl (14.0-18.0); LYMPH # 0.8 10*3/uL (1.3-4.4); LYMPH % 16.8 % (27.0-41.0); MEAN CELL VOLUME 104.3 fl (80.0-94.0); MEAN CORPUSCULAR HGB 34.6 pg (27.0-31.0); MEAN CORPUSCULAR HGB CONC 33.2 g/dl (33.0-37.0); MEAN PLATELET VOLUME 9.1 fl (9.6-12.3); MONO # 0.4 10*3/uL (0.1-1.0); MONO % 9.1 % (3.0-9.0); NEUT # 3.2 10*3/uL (2.3-7.9); NEUT % 69.9 % (47.0-73.0); PLATELET COUNT AUTOMATED 274 10*3/uL (130-400); RED BLOOD COUNT 1.88 10*6/uL (4.50-5.90); RED CELL DISTRI WIDTH 13.2 % (0-14.5); WHITE BLOOD COUNT 4.5 10*3/uL (4.8-10.8)
--- NOTE | 2019-02-22 07:58 | NUR ---
NOTIFIED REGARDING MOST RECENT HGB/HCT.
--- NOTE | 2019-02-22 08:52 | NUR ---
FECAL OCCULT SENT AT THIS TIME PER ORDER.
--- NOTE | 2019-02-22 08:58 | NUR ---
HOLD BLOOD THINNERS TODAY PER .
--- NOTE | 2019-02-22 09:00 | NUR ---
case management visits with patient, patient stated he will be going home in a couple days, he is still willing to come to the hosptial as an outpatient to received iv antibiotics, no other needs at this time
--- NOTE | 2019-02-22 10:24 | NUR ---
CC Informed consent obtained from patient for Blood transfussion by . Patient identified by arm band. Vital signs recorded. Blood unit number verified by 2 R.N.'s. I.V. site satisfactory. Unit 1 started at a KVO rate with Normal Saline. SHELLIE CHAVEZ
--- NOTE | 2019-02-22 10:33 | NUR ---
PT REFUSING SCD'S AT THIS TIME.
--- NOTE | 2019-02-22 13:15 | NUR ---
FIRST UNIT OF BLOOD COMPLETE AT THIS TIME.
--- NOTE | 2019-02-22 13:25 | NUR ---
NOTIFIED REGARDING CONSULT. NO NEW ORDERS.
[2019-02-22 14:47] LABS: HEMATOCRIT 21.9 % (42.0-52.0); HEMOGLOBIN 7.5 g/dl (14.0-18.0)
--- NOTE | 2019-02-22 14:50 | NUR ---
IN TO SEE PATIENT REGARDING CONSULT. PATIENT FOR EGD/COLO Wednesday02/24/19.
--- NOTE | 2019-02-22 15:08 | NUR ---
NOTIFIED REGARDING MOST RECENT HGB/HCT. NO NEW ORDERS AT THIS TIME. WILL REASSESS AM LABS.
--- NOTE | 2019-02-22 17:09 | NUR ---
CALLED AT THIS TIME REGARDING TRANSFUSE ORDER. PATIENT IS TO GET 2 UNITS TRANSFUSED. NEW ORDERS RECEIVED.
--- NOTE | 2019-02-22 18:00 | NUR ---
SECOND UNIT OF BLOOD INITIATED AT THIS TIME PER ORDER.
[2019-02-23] VITALS: BP 154/59
[2019-02-23 00:06] LABS: IMMUNOGLOBULIN IgE 002170 102 IU/mL (6-495)
--- NOTE | 2019-02-23 05:32 | NUR ---
24 HR chart check completed.
[2019-02-23 05:53] LABS: BUN 4 mg/dl (7-24); CHLORIDE 106 mmol/L (98-107); CREATININE 0.59 mg/dL (0.70-1.30); POTASSIUM 3.4 mmol/L (3.5-5.1); SODIUM 140 mmol/L (136-145)
[2019-02-23 05:59] LABS: BASO # 0.1 10*3/uL (0.0-0.1); BASO % 1.2 % (0.0-1.0); EOS # 0.1 10*3/uL (0.0-0.4); EOS % 3.3 % (1.0-4.0); HEMATOCRIT 23.3 % (42.0-52.0); LYMPH # 0.9 10*3/uL (1.3-4.4); LYMPH % 20.7 % (27.0-41.0); MEAN CORPUSCULAR HGB 34.2 pg (27.0-31.0); MEAN CORPUSCULAR HGB CONC 34.3 g/dl (33.0-37.0); MEAN PLATELET VOLUME 9.6 fl (9.6-12.3); MONO # 0.5 10*3/uL (0.1-1.0); MONO % 11.2 % (3.0-9.0); NEUT # 2.7 10*3/uL (2.3-7.9); NEUT % 63.1 % (47.0-73.0); PLATELET COUNT AUTOMATED 302 10*3/uL (130-400); RED BLOOD COUNT 2.34 10*6/uL (4.50-5.90); RED CELL DISTRI WIDTH 15.8 % (0-14.5); WHITE BLOOD COUNT 4.3 10*3/uL (4.8-10.8)
[2019-02-23 06:19] LABS: MEAN CELL VOLUME 99.6 fl (80.0-94.0)
[2019-02-23 08:00] VITALS: BP 144/57
--- NOTE | 2019-02-23 08:18 | NUR ---
PATIENT SITTING UP IN BED. NO DISTRESS NOTED. RESPIRATIONS EASY, REGULAR. POX 98% VIA RA. DENIES ANY SOB. DENIES ANY PAIN/DISCOMFORT AT THIS TIME. WILL CONTINUE TO MONITOR. CALL LIGHT WITHIN REACH. SEE SHIFT ASSESSMENT.
--- NOTE | 2019-02-23 09:00 | NUR ---
case management visits with patient, patient will be going home when medically stable, case management will follow
[2019-02-23 12:00] VITALS: BP 151/67
[2019-02-23 16:00] VITALS: BP 159/62
--- NOTE | 2019-02-23 19:10 | NUR ---
REPORT OBTAINED FROM YOBANI. PATIENT IS RESTING IN BED, EYES CLOSED. NO DISTRESS NOTED, RESP ARE ERND ON ROOM AIR. BED IS LOCKED IN LOWEST POSITION. CALL LIGTH LEFT WITHIN REACH.
[2019-02-23 20:00] VITALS: BP 148/71
--- NOTE | 2019-02-23 20:30 | NUR ---
PATIENT STATED THAT LAST BM WAS CLEAR AND MOSTLY WATER. STATED HE WILL INFORM ME OF NEXT BM.
--- NOTE | 2019-02-23 21:00 | NUR ---
PATIENT IS AWARE THAT HE IS NPO AFTER MIDNIGHT
--- NOTE | 2019-02-23 22:10 | NUR ---
PATIENT BM IS CLEAR WITH LITTLE SPECS OF STOOL. WILL NOTIFY THIS NURSE OF NEXT BM.
--- NOTE | 2019-02-23 23:37 | NUR ---
PATIENTS BM IS CLEAR AT THIS TIME.
[2019-02-24] VITALS (9 sets, daily range): BP systolic 109–170; BP diastolic 54–73
--- NOTE | 2019-02-24 01:49 | NUR ---
24 HR chart check completed.
--- NOTE | 2019-02-24 02:56 | NUR ---
SLEEPING, EYES CLOSED. CALL LIGHT WITHIN REACH.
[2019-02-24 08:00] LABS: BASO % 0.7 % (0.0-1.0); EOS # 0.1 10*3/uL (0.0-0.4); EOS % 1.5 % (1.0-4.0); HEMATOCRIT 23.5 % (42.0-52.0); HEMOGLOBIN 7.8 g/dl (14.0-18.0); LYMPH # 0.7 10*3/uL (1.3-4.4); LYMPH % 18.1 % (27.0-41.0); MEAN CELL VOLUME 101.3 fl (80.0-94.0); MEAN CORPUSCULAR HGB 33.6 pg (27.0-31.0); MEAN CORPUSCULAR HGB CONC 33.2 g/dl (33.0-37.0); MEAN PLATELET VOLUME 9.2 fl (9.6-12.3); MONO # 0.4 10*3/uL (0.1-1.0); MONO % 10.4 % (3.0-9.0); NEUT # 2.8 10*3/uL (2.3-7.9); NEUT % 69.1 % (47.0-73.0); PLATELET COUNT AUTOMATED 344 10*3/uL (130-400); RED BLOOD COUNT 2.32 10*6/uL (4.50-5.90); RED CELL DISTRI WIDTH 14.8 % (0-14.5)
[2019-02-24 08:48] LABS: CHLORIDE 105 mmol/L (98-107); POTASSIUM 3.6 mmol/L (3.5-5.1); SODIUM 139 mmol/L (136-145)
[2019-02-24 08:57] LABS: BUN 3 mg/dl (7-24); CREATININE 0.58 mg/dL (0.70-1.30)
--- NOTE | 2019-02-24 09:00 | NUR ---
case management visits with patient, patient will be going home when able, if patient is discharged over the weekend he will need to be set up for outpatient iv antibiotics, case management will follow
--- NOTE | 2019-02-24 19:20 | NUR ---
REPORT OBTAINED FROM BALTAZAR. PATIENT IS RESTING IN BED. VOICED NO COMPLAINTS. RESP ARE ERND ON ROOM AIR, BED IS LOCKED IN LOWEST POSITION, CALL LIGHT LEFT WITHIN REACH.
[2019-02-25] VITALS (9 sets, daily range): BP systolic 120–165; BP diastolic 51–88
--- NOTE | 2019-02-25 02:32 | NUR ---
24 HR chart check completed.
--- NOTE | 2019-02-25 03:22 | NUR ---
PATIENT SLEEPING, EYES CLOSED. CALL LIGHT WITHIN REACH.
[2019-02-25 06:28] LABS: BASO % 0.7 % (0.0-1.0); EOS # 0.1 10*3/uL (0.0-0.4); EOS % 2.7 % (1.0-4.0); HEMOGLOBIN 7.2 g/dl (14.0-18.0); LYMPH # 0.9 10*3/uL (1.3-4.4); LYMPH % 22.6 % (27.0-41.0); MEAN CELL VOLUME 102.8 fl (80.0-94.0); MEAN CORPUSCULAR HGB 33.6 pg (27.0-31.0); MEAN CORPUSCULAR HGB CONC 32.7 g/dl (33.0-37.0); MEAN PLATELET VOLUME 9.4 fl (9.6-12.3); MONO # 0.4 10*3/uL (0.1-1.0); MONO % 10.6 % (3.0-9.0); NEUT # 2.6 10*3/uL (2.3-7.9); NEUT % 63.2 % (47.0-73.0); PLATELET COUNT AUTOMATED 359 10*3/uL (130-400); RED BLOOD COUNT 2.14 10*6/uL (4.50-5.90); RED CELL DISTRI WIDTH 14.4 % (0-14.5); WHITE BLOOD COUNT 4.1 10*3/uL (4.8-10.8)
[2019-02-25 06:32] LABS: BUN 3 mg/dl (7-24); CHLORIDE 103 mmol/L (98-107); CREATININE 0.67 mg/dL (0.70-1.30); POTASSIUM 3.8 mmol/L (3.5-5.1); SODIUM 138 mmol/L (136-145)
--- NOTE | 2019-02-25 11:29 | NUR ---
NOTIFIED O [facility] NEW ORDER FOR 1 UNIT OF PACKED RED BLOOD CELLS AND REPEAT h&h IN AM
--- NOTE | 2019-02-25 11:36 | NUR ---
Shift chart check completed.
--- NOTE | 2019-02-25 15:32 | NUR ---
BLOOD MOVED TO NEW SITE IN RIGHT ARM AFTER RAN SITE HAD SCANT LEAKING AT INSERTION SITE BUT GOOD BLOOD RETURN. SITE REMOVED PER PT REQUEST.
--- NOTE | 2019-02-25 15:34 | NUR ---
BLOOD INFUSING VIA ASYMPTOMATIC SITE. VSS. DENIES ALL C/O -PLAYING CARDS
--- NOTE | 2019-02-25 19:00 | NUR ---
REPORT OBTAINED FROM JENNIFER. PATIENT IS RESTING IN BED, EYES CLOSED. NO DISTRESS NOTED, RESP ARE ERND ON ROOM AIR. BED IS LOCKED IN LOWEST POSITION, CALL LIGHT LEFT WITHIN REACH.
[2019-02-26] VITALS (7 sets, daily range): BP systolic 137–168; BP diastolic 50–88
--- NOTE | 2019-02-26 03:22 | NUR ---
PATIENT SLEEPING, EYES CLOCED, CALL LIGHT WITHIN REACH.
--- NOTE | 2019-02-26 03:56 | NUR ---
24 HR chart check completed.
[2019-02-26 06:06] LABS: BASO % 0.7 % (0.0-1.0); EOS # 0.1 10*3/uL (0.0-0.4); EOS % 2.6 % (1.0-4.0); HEMATOCRIT 24.3 % (42.0-52.0); LYMPH % 23.3 % (27.0-41.0); MEAN CORPUSCULAR HGB 32.9 pg (27.0-31.0); MEAN CORPUSCULAR HGB CONC 32.9 g/dl (33.0-37.0); MEAN PLATELET VOLUME 9.2 fl (9.6-12.3); MONO # 0.4 10*3/uL (0.1-1.0); MONO % 9.3 % (3.0-9.0); NEUT # 2.8 10*3/uL (2.3-7.9); NEUT % 63.9 % (47.0-73.0); PLATELET COUNT AUTOMATED 367 10*3/uL (130-400); RED BLOOD COUNT 2.43 10*6/uL (4.50-5.90); RED CELL DISTRI WIDTH 15.3 % (0-14.5); WHITE BLOOD COUNT 4.3 10*3/uL (4.8-10.8)
--- NOTE | 2019-02-26 12:00 | NUR ---
NOTIFIED OF H/H, NEW ORDERES AND PLAN OF CARE RECIEVED AND DISCUSSED WITH PATIENT AND .
--- NOTE | 2019-02-26 19:00 | NUR ---
PT AWAKE IN BED DURING BEDSIDE SHIFT REPORT. NO C/O VOICED AT PRESENT TIME. IV SANDOSTATIN INFUSING W/OUT DIFF. CALL LIGHT IN REACH.
--- NOTE | 2019-02-26 21:00 | NUR ---
DR. PATRICK NOTIFIED OF PT'S MANUAL BP OF 160/88. T.O. RCVD FOR HYDRALAZINE 5MG IVP X1 NOW. PT ASYMPTOMATIC.
[2019-02-27] VITALS: BP 157/70
--- NOTE | 2019-02-27 02:28 | NUR ---
Patient sleeping. Respirations relaxed and easy. Siderails up . Wheelrickys on. CHU STANLEY
[2019-02-27 06:18] LABS: BASO % 1.2 % (0.0-1.0); EOS # 0.1 10*3/uL (0.0-0.4); EOS % 3.9 % (1.0-4.0); HEMATOCRIT 23.3 % (42.0-52.0); HEMOGLOBIN 7.7 g/dl (14.0-18.0); LYMPH # 0.6 10*3/uL (1.3-4.4); MEAN PLATELET VOLUME 8.3 fl (9.6-12.3); MONO # 0.4 10*3/uL (0.1-1.0); MONO % 12.9 % (3.0-9.0); NEUT # 2.1 10*3/uL (2.3-7.9); PLATELET COUNT AUTOMATED 312 10*3/uL (130-400); RED BLOOD COUNT 2.33 10*6/uL (4.50-5.90); RED CELL DISTRI WIDTH 14.9 % (0-14.5); WHITE BLOOD COUNT 3.3 10*3/uL (4.8-10.8)
[2019-02-27 08:00] VITALS: BP 164/68
--- NOTE | 2019-02-27 09:00 | NUR ---
case management visits with patient, patient states he will be going home when able. patient denies any home needs
[2019-02-27 11:00] VITALS: BP 157/55
[2019-02-27 20:00] VITALS: BP 167/66
--- NOTE | 2019-02-27 20:30 | NUR ---
DR. SOLER HERE TO SEE PT. & DISCUSS PLAN OF CARE.
[2019-02-28] VITALS: BP 156/58
--- NOTE | 2019-02-28 | NUR ---
AROUSES EASIILY WHEN GOING INTO ROOM TO HANG ANTIBIOTIC. PT. VOICES NO C/O AT THIS TIME; NO DISTRESS NOTED. CALL LIGHT WITHIN REACH.
--- NOTE | 2019-02-28 04:00 | NUR ---
RESTING IN BED WITH EYES CLOSED. RESPIRATIONS EASY & UNLABORED ON ROOM AIR. CALL LIGHT WTIHIN REACH.
--- NOTE | 2019-02-28 06:30 | NUR ---
TOOK PO MEDICATIONS WITHOUT DIFFICULTY. SANDOSTATIN INFUSING ORDERED; SITE ASYMPTOMATIC. CALL LIGHT WITHIN REACH. PT. VOICES NO C/O AT THIS TIME.
[2019-02-28 07:16] LABS: BASO # 0.1 10*3/uL (0.0-0.1); BASO % 1.4 % (0.0-1.0); EOS # 0.2 10*3/uL (0.0-0.4); EOS % 4.4 % (1.0-4.0); LYMPH # 0.9 10*3/uL (1.3-4.4); LYMPH % 23.7 % (27.0-41.0); MEAN CELL VOLUME 98.7 fl (80.0-94.0); MEAN CORPUSCULAR HGB CONC 32.5 g/dl (33.0-37.0); MEAN PLATELET VOLUME 8.8 fl (9.6-12.3); MONO # 0.3 10*3/uL (0.1-1.0); MONO % 9.4 % (3.0-9.0); NEUT # 2.2 10*3/uL (2.3-7.9); NEUT % 60.8 % (47.0-73.0); PLATELET COUNT AUTOMATED 382 10*3/uL (130-400); RED BLOOD COUNT 3.06 10*6/uL (4.50-5.90); RED CELL DISTRI WIDTH 15.1 % (0-14.5); WHITE BLOOD COUNT 3.6 10*3/uL (4.8-10.8)
[2019-02-28 07:42] LABS: BUN 4 mg/dl (7-24); CHLORIDE 101 mmol/L (98-107); CREATININE 0.92 mg/dL (0.70-1.30); POTASSIUM 3.6 mmol/L (3.5-5.1); SODIUM 139 mmol/L (136-145)
[2019-02-28 07:48] LABS: HEMATOCRIT 30.2 % (42.0-52.0); HEMOGLOBIN 9.8 g/dl (14.0-18.0)
[2019-02-28 08:00] VITALS: BP 158/60
--- NOTE | 2019-02-28 08:34 | NUR ---
IN TO SEE PATIENT AT THIS TIME. PT SLEEPING IN BED AND DID NOT AWAKEN WHEN I ENTERED THE ROOM. NO S/S OF DISTRESS OR SOB. CALL LIGHT WITHIN REACH.
[2019-02-28 12:00] VITALS: BP 167/70
[2019-02-28 16:00] VITALS: BP 163/64
[2019-02-28 20:00] VITALS: BP 147/73
--- NOTE | 2019-02-28 20:05 | NUR ---
SPOKE TO REGARDING SANDOSTATIN GTT. SANDOSTATIN ORDER HAS REACHED STOP DATE. PER PHARMACIST, 2-5 DAYS OF TREATMENT IS RECOMMENDED IN THE LITERATURE. PATIENT HAS BEEN ON DRIP SINCE 02/24/19. DISCUSSED EGD/COLO RESULTS, H&H FROM THIS MORNING, AND LENGTH OF SANDOSTATIN THERAPY. INSTRUCTED TO CALL .
--- NOTE | 2019-02-28 20:06 | NUR ---
SPOKE TO REGARDING SANDOSTATIN GTT. INSTRUCTED TO FINISH THIS BAG OF SANDOSTATIN AND THEN D/C DRIP.
[2019-03-01] VITALS: BP 160/61
[2019-03-01 06:31] LABS: BASO % 1.3 % (0.0-1.0); EOS # 0.1 10*3/uL (0.0-0.4); EOS % 2.8 % (1.0-4.0); HEMATOCRIT 30.3 % (42.0-52.0); LYMPH # 0.7 10*3/uL (1.3-4.4); LYMPH % 20.6 % (27.0-41.0); MEAN CELL VOLUME 98.7 fl (80.0-94.0); MEAN CORPUSCULAR HGB 32.6 pg (27.0-31.0); MEAN PLATELET VOLUME 8.8 fl (9.6-12.3); MONO # 0.3 10*3/uL (0.1-1.0); NEUT # 2.1 10*3/uL (2.3-7.9); PLATELET COUNT AUTOMATED 362 10*3/uL (130-400); RED BLOOD COUNT 3.07 10*6/uL (4.50-5.90); RED CELL DISTRI WIDTH 15.1 % (0-14.5); WHITE BLOOD COUNT 3.2 10*3/uL (4.8-10.8)
[2019-03-01 08:00] VITALS: BP 141/57
--- NOTE | 2019-03-01 08:39 | NUR ---
CALLED WITH LABS. NO ANSWER AT THIS TIME. AWAITING RETURN PHONE CALL.
--- NOTE | 2019-03-01 08:51 | NUR ---
RETURNED CALL AND UPDATED ON MORNING LABS. OKAY FOR PATIENT TO HAVE A SOFT DIET. NO PROCEDURES TODAY.
--- NOTE | 2019-03-01 09:00 | NUR ---
case management visits with patient, patient states he will be able to be discharged today, he will need 3 more days of outpatient iv antibiotics, this will be set up when script is obtained, case management will follow
--- NOTE | 2019-03-01 09:13 | NUR ---
IN TO SEE PATIENT.
[2019-03-01 12:00] VITALS: BP 148/57
[2019-03-01] MEDS ORDERED: PROTONIX40 MG PO (14:06)
[2019-03-01] MEDS ORDERED: Carafate1 GM/10 ML PO (14:06)
[2019-03-01] MEDS ORDERED: ZYVOX600 MG PO (14:06)
--- NOTE | 2019-03-01 15:15 | NUR ---
Discharge instructions reviewed with patient/family. Patient receptive and verbalizes understanding. Follow-up care arranged. Written instructions given to patient/family. SHELLIE CHAVEZ.
[2019-03-24 10:06] LABS: ORGANISM ID, MOLD Final report (.); RESULT 1 Final Identification (.)
[2019-03-30 11:07] LABS: ACID FAST CULTURE Negative (.)
[2019-03-30 11:07] LABS: ACID FAST CULTURE Negative (.)
== END 2019-03-01 15:15 | disposition home or self-care (01) | DRG 871 ==
LOC: ED 15:45 → EDHOLD 18:44 → 4E 18:44
PROVIDERS: Internal Medicine; Internal Medicine Critical Care Medicine; Internal Medicine Gastroenterology; Nurse Practitioner Family; Student in an Organized Health Care Education/Training Program; Surgery; ADMIT Internal Medicine
PROC: 0BC98ZZ Extirpation of Matter from Lingula Bronchus, Via Natural or Artificial Opening Endoscopic (ICD-10-PCS; principal; 2019-02-16)
PROC: 0BC88ZZ Extirpation of Matter from Left Upper Lobe Bronchus, Via Natural or Artificial Opening Endoscopic (ICD-10-PCS; principal; 2019-02-16)
PROC: 0BC38ZZ Extirpation of Matter from Right Main Bronchus, Via Natural or Artificial Opening Endoscopic (ICD-10-PCS; principal; 2019-02-16)
PROC: 0BC58ZZ Extirpation of Matter from Right Middle Lobe Bronchus, Via Natural or Artificial Opening Endoscopic (ICD-10-PCS; principal; 2019-02-16)
PROC: 0BC78ZZ Extirpation of Matter from Left Main Bronchus, Via Natural or Artificial Opening Endoscopic (ICD-10-PCS; principal; 2019-02-16)
PROC: 0BCB8ZZ Extirpation of Matter from Left Lower Lobe Bronchus, Via Natural or Artificial Opening Endoscopic (ICD-10-PCS; principal; 2019-02-16)
PROC: 0BC48ZZ Extirpation of Matter from Right Upper Lobe Bronchus, Via Natural or Artificial Opening Endoscopic (ICD-10-PCS; principal; 2019-02-16)
PROC: 0BC68ZZ Extirpation of Matter from Right Lower Lobe Bronchus, Via Natural or Artificial Opening Endoscopic (ICD-10-PCS; principal; 2019-02-16)
PROC: 0BC18ZZ Extirpation of Matter from Trachea, Via Natural or Artificial Opening Endoscopic (ICD-10-PCS; principal; 2019-02-16)
PROC: 0B9F8ZX Drainage of Right Lower Lung Lobe, Via Natural or Artificial Opening Endoscopic, Diagnostic (ICD-10-PCS; principal; 2019-02-16)
PROC: 0W9930Z Drainage of Right Pleural Cavity with Drainage Device, Percutaneous Approach (ICD-10-PCS; 2019-02-17)
PROC: 3E0L3GC Introduction of Other Therapeutic Substance into Pleural Cavity, Percutaneous Approach (ICD-10-PCS; 2019-02-18)
PROC: 3E0L3GC Introduction of Other Therapeutic Substance into Pleural Cavity, Percutaneous Approach (ICD-10-PCS; 2019-02-19)
PROC: 30233N1 Transfusion of Nonautologous Red Blood Cells into Peripheral Vein, Percutaneous Approach (ICD-10-PCS; 2019-02-22)
PROC: 0DBK8ZZ Excision of Ascending Colon, Via Natural or Artificial Opening Endoscopic (ICD-10-PCS; 2019-02-24)
PROC: 0DB78ZX Excision of Stomach, Pylorus, Via Natural or Artificial Opening Endoscopic, Diagnostic (ICD-10-PCS; 2019-02-24)
PROC: 3E0G8GC Introduction of Other Therapeutic Substance into Upper GI, Via Natural or Artificial Opening Endoscopic (ICD-10-PCS; 2019-02-24)
DX: A41.9 Sepsis, unspecified organism (principal); J69.0 Pneumonitis due to inhalation of food and vomit; J96.01 Acute respiratory failure with hypoxia; K26.4 Chronic or unspecified duodenal ulcer with hemorrhage; S22.31XA Fracture of one rib, right side, initial encounter for closed fracture; R04.2 Hemoptysis; E44.0 Moderate protein-calorie malnutrition; E87.1 Hypo-osmolality and hyponatremia; J98.11 Atelectasis; E27.9 Disorder of adrenal gland, unspecified; J43.8 Other emphysema; K29.70 Gastritis, unspecified, without bleeding; K57.30 Diverticulosis of large intestine without perforation or abscess without bleeding; K63.5 Polyp of colon; K21.9 Gastro-esophageal reflux disease without esophagitis; D53.9 Nutritional anemia, unspecified; E83.41 Hypermagnesemia; J45.909 Unspecified asthma, uncomplicated; F17.210 Nicotine dependence, cigarettes, uncomplicated; D72.810 Lymphocytopenia; A05.9 Bacterial foodborne intoxication, unspecified; D50.0 Iron deficiency anemia secondary to blood loss (chronic); T51.91XA Toxic effect of unspecified alcohol, accidental (unintentional), initial encounter; X58.XXXA Exposure to other specified factors, initial encounter; Y93.89 Activity, other specified; Y99.8 Other external cause status; Y92.89 Other specified places as the place of occurrence of the external cause; Z91.09 Other allergy status, other than to drugs and biological substances; Z83.79 Family history of other diseases of the digestive system; Z82.0 Family history of epilepsy and other diseases of the nervous system; Z79.82 Long term (current) use of aspirin; Z68.22 Body mass index [BMI] 22.0-22.9, adult

== ENCOUNTER → 2019-04-05 | Outpatient (CLI) | payer MEDICARE ==
[~2019-04-05] MED LIST: ASPIRIN ADULT L81 M1 PO; Carafate1 GM/10 ML PO; PROTONIX40 MG PO; ZYVOX600 MG PO
[2019-04-06 08:06] LABS: ALPHA-1-ANTITRYPSIN, SERUM 140 mg/dL (90-200)
== END | disposition home or self-care (01) ==
LOC: LAB 08:47
PROVIDERS: Internal Medicine Critical Care Medicine
DX: J44.9 Chronic obstructive pulmonary disease, unspecified (principal)

== ENCOUNTER → 2019-07-13 | Outpatient (CLI) | payer MEDICARE | END | disposition home or self-care (01) | LOC: RESCLI 01:52 | DX: Z12.5 Encounter for screening for malignant neoplasm of prostate (principal); I10 Essential (primary) hypertension; K26.9 Duodenal ulcer, unspecified as acute or chronic, without hemorrhage or perforation; F10.10 Alcohol abuse, uncomplicated; J43.9 Emphysema, unspecified; Z71.6 Tobacco abuse counseling; Z72.0 Tobacco use; Z79.899 Other long term (current) drug therapy ==

== ENCOUNTER → 2019-08-17 | Outpatient (CLI) | payer MEDICARE ==
[2019-08-17 15:31] LABS: BUN 15 mg/dl (7-24); CHLORIDE 105 mmol/L (98-107); POTASSIUM 4.5 mmol/L (3.5-5.1); SODIUM 137 mmol/L (136-145)
== END | disposition home or self-care (01) ==
LOC: RESCLI 00:43
PROVIDERS: Internal Medicine
DX: J43.9 Emphysema, unspecified (principal); K26.9 Duodenal ulcer, unspecified as acute or chronic, without hemorrhage or perforation; I10 Essential (primary) hypertension; E27.8 Other specified disorders of adrenal gland; F10.10 Alcohol abuse, uncomplicated; Z71.6 Tobacco abuse counseling; Z72.0 Tobacco use; Z79.899 Other long term (current) drug therapy; Z88.8 Allergy status to other drugs, medicaments and biological substances

== ENCOUNTER → 2019-08-21 | Outpatient (CLI) | payer MEDICARE | END | disposition home or self-care (01) | LOC: MRI 00:55 | DX: K76.0 Fatty (change of) liver, not elsewhere classified (principal); E27.8 Other specified disorders of adrenal gland; I10 Essential (primary) hypertension ==

== ENCOUNTER → 2019-09-19 | Outpatient (CLI) | payer MEDICARE | END | disposition home or self-care (01) | LOC: RESCLI 01:14 | DX: J43.9 Emphysema, unspecified (principal); K26.9 Duodenal ulcer, unspecified as acute or chronic, without hemorrhage or perforation; I10 Essential (primary) hypertension; F10.10 Alcohol abuse, uncomplicated; F17.200 Nicotine dependence, unspecified, uncomplicated; Z71.6 Tobacco abuse counseling; Z79.899 Other long term (current) drug therapy ==

== ENCOUNTER → 2019-10-25 | Outpatient (CLI) | payer MEDICARE | END | disposition home or self-care (01) | LOC: RESCLI 00:27 | DX: J43.9 Emphysema, unspecified (principal); K26.9 Duodenal ulcer, unspecified as acute or chronic, without hemorrhage or perforation; F10.10 Alcohol abuse, uncomplicated; I10 Essential (primary) hypertension; K31.84 Gastroparesis; Z72.0 Tobacco use; Z71.6 Tobacco abuse counseling; Z79.899 Other long term (current) drug therapy ==

== ENCOUNTER → 2019-11-30 | Outpatient (CLI) | payer MEDICARE ==
[2019-11-30 09:28] LABS: BASO % 0.8 % (0.0-1.0); EOS # 0.1 10*3/uL (0.0-0.4); EOS % 2.4 % (1.0-4.0); HEMATOCRIT 33.9 % (42.0-52.0); HEMOGLOBIN 11.3 g/dl (14.0-18.0); LYMPH # 1.2 10*3/uL (1.3-4.4); LYMPH % 33.2 % (27.0-41.0); MEAN CELL VOLUME 103.7 fl (80.0-94.0); MEAN CORPUSCULAR HGB 34.6 pg (27.0-31.0); MEAN CORPUSCULAR HGB CONC 33.3 g/dl (33.0-37.0); MONO # 0.3 10*3/uL (0.1-1.0); NEUT # 2.1 10*3/uL (2.3-7.9); NEUT % 55.3 % (47.0-73.0); PLATELET COUNT AUTOMATED 200 10*3/uL (130-400); RED BLOOD COUNT 3.27 10*6/uL (4.50-5.90); RED CELL DISTRI WIDTH 13.6 % (0-14.5); WHITE BLOOD COUNT 3.7 10*3/uL (4.8-10.8)
[2019-11-30 09:43] LABS: ALBUMIN 3.7 gm/dl (3.1-4.5); ALKALINE PHOSPHATASE 69 U/L (45-117); BUN 17 mg/dl (7-24); CHLORIDE 105 mmol/L (98-107); CHOLESTEROL 145 mg/dL (<200); CREATININE 1.14 mg/dL (0.70-1.30); POTASSIUM 4.2 mmol/L (3.5-5.1); SGOT/AST 7 IU/L (3-35); SGPT/ALT 19 U/L (12-78); SODIUM 136 mmol/L (136-145); TRIGLYCERIDES 45 mg/dl (<150); VLDL CHOLESTEROL 9 mg/dL (6-40)
[2019-11-30 09:44] LABS: HDL CHOLESTEROL 69 mg/dl (40-60); LDL CHOLESTEROL 67 mg/dL (9-159)
[2019-11-30 10:34] LABS: VITAMIN D, 25-HYDROXY 38.2 ng/mL (30-100)
== END | disposition home or self-care (01) ==
LOC: RESCLI 00:21
PROVIDERS: Internal Medicine
DX: Z12.5 Encounter for screening for malignant neoplasm of prostate (principal); J43.9 Emphysema, unspecified; F10.10 Alcohol abuse, uncomplicated; K26.9 Duodenal ulcer, unspecified as acute or chronic, without hemorrhage or perforation; K31.84 Gastroparesis; I10 Essential (primary) hypertension; Z72.0 Tobacco use; Z71.6 Tobacco abuse counseling

== ENCOUNTER → 2020-05-07 | Outpatient (CLI) | payer MEDICARE ==
[2020-05-07 10:51] LABS: EOS # 0.1 10*3/uL (0.0-0.4); EOS % 2.3 % (1.0-4.0); HEMATOCRIT 32.1 % (42.0-52.0); LYMPH # 1.1 10*3/uL (1.3-4.4); LYMPH % 29.8 % (27.0-41.0); MEAN CELL VOLUME 97.3 fl (80.0-94.0); MEAN CORPUSCULAR HGB 30.9 pg (27.0-31.0); MEAN CORPUSCULAR HGB CONC 31.8 g/dl (33.0-37.0); MEAN PLATELET VOLUME 9.1 fl (9.6-12.3); MONO # 0.2 10*3/uL (0.1-1.0); MONO % 6.3 % (3.0-9.0); NEUT # 2.3 10*3/uL (2.3-7.9); NEUT % 60.1 % (47.0-73.0); PLATELET COUNT AUTOMATED 222 10*3/uL (130-400); RED CELL DISTRI WIDTH 16.1 % (0-14.5); WHITE BLOOD COUNT 3.8 10*3/uL (4.8-10.8)
[2020-05-07 11:06] LABS: IRON 98 ug/dL (65-175); TOTAL IRON BINDING CAPACITY 415 ug/dl (250-450)
[2020-05-07 11:16] LABS: FERRITIN 11.1 ng/mL (22.0-322.0)
== END | disposition home or self-care (01) ==
LOC: RESCLI 02:34
PROVIDERS: Hospitalist
DX: I10 Essential (primary) hypertension (principal); J43.9 Emphysema, unspecified; E27.8 Other specified disorders of adrenal gland; K31.84 Gastroparesis; D64.9 Anemia, unspecified; K29.90 Gastroduodenitis, unspecified, without bleeding; F17.200 Nicotine dependence, unspecified, uncomplicated; Z11.59 Encounter for screening for other viral diseases; Z79.899 Other long term (current) drug therapy; Z98.890 Other specified postprocedural states

== ENCOUNTER → 2020-09-24 | Outpatient (CLI) | payer MEDICARE | END | disposition home or self-care (01) | LOC: RESCLI 09-23 00:35 | PROVIDERS: ATTEND Emergency Medicine | DX: I10 Essential (primary) hypertension (principal); F10.10 Alcohol abuse, uncomplicated; K26.9 Duodenal ulcer, unspecified as acute or chronic, without hemorrhage or perforation; J43.9 Emphysema, unspecified; K31.84 Gastroparesis; E27.8 Other specified disorders of adrenal gland; F17.210 Nicotine dependence, cigarettes, uncomplicated; Z79.899 Other long term (current) drug therapy; Z98.890 Other specified postprocedural states ==

== ENCOUNTER → 2021-03-18 | Outpatient (CLI) | payer MEDICARE ==
[2021-03-18 10:07] LABS: BASO % 1.1 % (0.0-1.0); EOS # 0.1 10*3/uL (0.0-0.4); EOS % 1.4 % (1.0-4.0); HEMATOCRIT 27.8 % (42.0-52.0); LYMPH % 27.3 % (27.0-41.0); MEAN CORPUSCULAR HGB 27.2 pg (27.0-31.0); MEAN CORPUSCULAR HGB CONC 30.9 g/dl (33.0-37.0); MEAN PLATELET VOLUME 9.1 fl (9.6-12.3); MONO # 0.3 10*3/uL (0.1-1.0); MONO % 7.5 % (3.0-9.0); NEUT # 2.3 10*3/uL (2.3-7.9); NEUT % 62.4 % (47.0-73.0); PLATELET COUNT AUTOMATED 224 10*3/uL (130-400); RED BLOOD COUNT 3.16 10*6/uL (4.50-5.90); RED CELL DISTRI WIDTH 18.2 % (0-14.5); WHITE BLOOD COUNT 3.6 10*3/uL (4.8-10.8)
[2021-03-18 10:38] LABS: ALBUMIN 3.7 gm/dl (3.1-4.5); ALKALINE PHOSPHATASE 61 U/L (45-117); BUN 14 mg/dl (7-24); CHLORIDE 102 mmol/L (98-107); CREATININE 1.15 mg/dL (0.70-1.30); IRON 97 ug/dL (65-175); POTASSIUM 4.1 mmol/L (3.5-5.1); SGOT/AST 13 IU/L (3-35); SGPT/ALT 21 U/L (12-78); SODIUM 132 mmol/L (136-145); TOTAL IRON BINDING CAPACITY 473 ug/dl (250-450); TOTAL PROTEIN 9.3 gm/dL (6.4-8.2)
== END | disposition home or self-care (01) ==
LOC: RESCLI 00:30
PROVIDERS: ATTEND Student in an Organized Health Care Education/Training Program
DX: I10 Essential (primary) hypertension (principal); K26.9 Duodenal ulcer, unspecified as acute or chronic, without hemorrhage or perforation; J43.9 Emphysema, unspecified; E27.8 Other specified disorders of adrenal gland; K31.84 Gastroparesis; K29.90 Gastroduodenitis, unspecified, without bleeding; R53.82 Chronic fatigue, unspecified; F17.200 Nicotine dependence, unspecified, uncomplicated; Z13.820 Encounter for screening for osteoporosis; Z12.2 Encounter for screening for malignant neoplasm of respiratory organs; Z79.899 Other long term (current) drug therapy; Z98.890 Other specified postprocedural states

== ENCOUNTER → 2021-03-31 | Outpatient (CLI) | payer MEDICARE | END | disposition home or self-care (01) | LOC: RAD 04:38 | PROVIDERS: ATTEND Internal Medicine | DX: Z13.820 Encounter for screening for osteoporosis (principal); M85.89 Other specified disorders of bone density and structure, multiple sites ==

== ENCOUNTER → 2021-06-10 | Outpatient (CLI) | payer MEDICARE | END | disposition home or self-care (01) | LOC: RESCLI 00:30 | PROVIDERS: ATTEND Internal Medicine | DX: J43.9 Emphysema, unspecified (principal); I10 Essential (primary) hypertension; K26.9 Duodenal ulcer, unspecified as acute or chronic, without hemorrhage or perforation; E27.8 Other specified disorders of adrenal gland; K31.84 Gastroparesis; K29.90 Gastroduodenitis, unspecified, without bleeding; D64.9 Anemia, unspecified; M85.851 Other specified disorders of bone density and structure, right thigh; M85.852 Other specified disorders of bone density and structure, left thigh; Z79.899 Other long term (current) drug therapy; F17.200 Nicotine dependence, unspecified, uncomplicated; Z98.890 Other specified postprocedural states ==

== ENCOUNTER → 2021-09-02 | Outpatient (CLI) | payer MEDICARE ==
[2021-09-02 10:46] LABS: BASO % 0.7 % (0.0-1.0); EOS % 0.7 % (1.0-4.0); HEMATOCRIT 25.1 % (42.0-52.0); LYMPH # 1.1 10*3/uL (1.3-4.4); LYMPH % 23.8 % (27.0-41.0); MEAN CELL VOLUME 83.9 fl (80.0-94.0); MEAN CORPUSCULAR HGB 25.4 pg (27.0-31.0); MEAN CORPUSCULAR HGB CONC 30.3 g/dl (33.0-37.0); MONO # 0.3 10*3/uL (0.1-1.0); MONO % 6.7 % (3.0-9.0); NEUT # 3.1 10*3/uL (2.3-7.9); NEUT % 67.9 % (47.0-73.0); PLATELET COUNT AUTOMATED 234 10*3/uL (130-400); RED BLOOD COUNT 2.99 10*6/uL (4.50-5.90); RED CELL DISTRI WIDTH 19.3 % (0-14.5); WHITE BLOOD COUNT 4.5 10*3/uL (4.8-10.8)
[2021-09-02 10:54] LABS: ALBUMIN 3.4 gm/dl (3.1-4.5); ALKALINE PHOSPHATASE 62 U/L (45-117); BUN 10 mg/dl (7-24); CHLORIDE 105 mmol/L (98-107); CREATININE 1.04 mg/dL (0.70-1.30); IRON 86 ug/dL (65-175); SGOT/AST 14 IU/L (3-35); SGPT/ALT 21 U/L (12-78); SODIUM 138 mmol/L (136-145); TOTAL IRON BINDING CAPACITY 417 ug/dl (250-450); TOTAL PROTEIN 9.2 gm/dL (6.4-8.2)
== END | disposition home or self-care (01) ==
LOC: RESCLI 01:36
PROVIDERS: ATTEND Student in an Organized Health Care Education/Training Program
DX: I10 Essential (primary) hypertension (principal); K26.9 Duodenal ulcer, unspecified as acute or chronic, without hemorrhage or perforation; J43.9 Emphysema, unspecified; E27.8 Other specified disorders of adrenal gland; K31.84 Gastroparesis; K29.90 Gastroduodenitis, unspecified, without bleeding; D64.9 Anemia, unspecified; M85.851 Other specified disorders of bone density and structure, right thigh; M85.852 Other specified disorders of bone density and structure, left thigh; D50.8 Other iron deficiency anemias; Z79.899 Other long term (current) drug therapy; Z98.890 Other specified postprocedural states

== ENCOUNTER → 2022-02-17 | Outpatient (CLI) | payer MEDICARE ==
[2022-02-17 10:25] LABS: BASO % 0.6 % (0.0-1.0); EOS % 1.1 % (1.0-4.0); HEMATOCRIT 36.8 % (42.0-52.0); LYMPH # 1.1 10*3/uL (1.3-4.4); LYMPH % 32.5 % (27.0-41.0); MEAN CELL VOLUME 104.2 fl (80.0-94.0); MEAN CORPUSCULAR HGB 34.6 pg (27.0-31.0); MEAN CORPUSCULAR HGB CONC 33.2 g/dl (33.0-37.0); MEAN PLATELET VOLUME 8.5 fl (9.6-12.3); MONO # 0.3 10*3/uL (0.1-1.0); NEUT % 57.5 % (47.0-73.0); PLATELET COUNT AUTOMATED 196 10*3/uL (130-400); RED BLOOD COUNT 3.53 10*6/uL (4.50-5.90); RED CELL DISTRI WIDTH 14.5 % (0-14.5); WHITE BLOOD COUNT 3.5 10*3/uL (4.8-10.8)
== END | disposition home or self-care (01) ==
LOC: RESCLI 01:21
PROVIDERS: Hospitalist; ATTEND Family Medicine
DX: I10 Essential (primary) hypertension (principal); K26.9 Duodenal ulcer, unspecified as acute or chronic, without hemorrhage or perforation; E27.8 Other specified disorders of adrenal gland; K31.84 Gastroparesis; R53.82 Chronic fatigue, unspecified; D50.8 Other iron deficiency anemias; M85.851 Other specified disorders of bone density and structure, right thigh; K29.90 Gastroduodenitis, unspecified, without bleeding; J43.9 Emphysema, unspecified; Z79.899 Other long term (current) drug therapy

== ENCOUNTER → 2022-08-24 | Outpatient (CLI) | payer MEDICARE ==
[2022-08-24 10:37] LABS: ALKALINE PHOSPHATASE 59 U/L (45-117); BUN 11 mg/dl (7-24); CHLORIDE 100 mmol/L (98-107); CHOLESTEROL 156 mg/dL (<200); CREATININE 1.07 mg/dL (0.70-1.30); LDL CHOLESTEROL 64 mg/dL (9-159); POTASSIUM 4.4 mmol/L (3.5-5.1); SGOT/AST 11 IU/L (3-35); SGPT/ALT 21 U/L (12-78); SODIUM 133 mmol/L (136-145); TOTAL PROTEIN 9.1 gm/dL (6.4-8.2); TRIGLYCERIDES 43 mg/dl (<150)
[2022-08-24 10:56] LABS: VITAMIN D, 25-HYDROXY 50.7 ng/mL (30-100)
== END | disposition home or self-care (01) ==
LOC: RESCLI 03:54
PROVIDERS: Student in an Organized Health Care Education/Training Program; ATTEND Internal Medicine
DX: J43.9 Emphysema, unspecified (principal); I10 Essential (primary) hypertension; K29.90 Gastroduodenitis, unspecified, without bleeding; D50.8 Other iron deficiency anemias; M85.80 Other specified disorders of bone density and structure, unspecified site; Z13.6 Encounter for screening for cardiovascular disorders; Z53.20 Procedure and treatment not carried out because of patient's decision for unspecified reasons; Z98.890 Other specified postprocedural states; Z91.09 Other allergy status, other than to drugs and biological substances; Z87.891 Personal history of nicotine dependence; Z72.89 Other problems related to lifestyle; Z79.899 Other long term (current) drug therapy

== ENCOUNTER → 2023-02-22 | Outpatient (CLI) | payer MEDICARE | END | disposition home or self-care (01) | LOC: RESCLI 02:14 | PROVIDERS: ATTEND Internal Medicine | DX: J43.9 Emphysema, unspecified (principal); D50.8 Other iron deficiency anemias; M85.80 Other specified disorders of bone density and structure, unspecified site; K29.90 Gastroduodenitis, unspecified, without bleeding; F10.90 Alcohol use, unspecified, uncomplicated; F17.210 Nicotine dependence, cigarettes, uncomplicated; I10 Essential (primary) hypertension; Z88.8 Allergy status to other drugs, medicaments and biological substances; Z72.89 Other problems related to lifestyle; Z79.899 Other long term (current) drug therapy ==

== ENCOUNTER → 2023-09-13 | Outpatient (CLI) | payer MEDICARE ==
[2023-09-13 11:26] LABS: BASO % 1.1 % (0.0-1.0); EOS % 0.8 % (1.0-4.0); HEMATOCRIT 36.9 % (42.0-52.0); LYMPH # 1.4 10*3/uL (1.3-4.4); LYMPH % 39.4 % (27.0-41.0); MEAN CELL VOLUME 97.6 fl (80.0-94.0); MEAN CORPUSCULAR HGB 33.3 pg (27.0-31.0); MEAN CORPUSCULAR HGB CONC 34.1 g/dl (33.0-37.0); MEAN PLATELET VOLUME 8.3 fl (9.6-12.3); MONO # 0.2 10*3/uL (0.1-1.0); MONO % 6.1 % (3.0-9.0); NEUT # 1.9 10*3/uL (2.3-7.9); NEUT % 52.6 % (47.0-73.0); PLATELET COUNT AUTOMATED 206 10*3/uL (130-400); RED BLOOD COUNT 3.78 10*6/uL (4.50-5.90); RED CELL DISTRI WIDTH 16.2 % (0-14.5); WHITE BLOOD COUNT 3.6 10*3/uL (4.8-10.8)
[2023-09-13 11:43] LABS: ALKALINE PHOSPHATASE 74 U/L (46-116); BUN 13 mg/dl (9-23); CHLORIDE 102 mmol/L (98-107); CHOLESTEROL 169 mg/dL (<200); LDL CHOLESTEROL 93 mg/dL (9-159); POTASSIUM 4.4 mmol/L (3.4-5.1); SGPT/ALT 8 U/L (5-49); TRIGLYCERIDES 66 mg/dl (<150)
[2023-09-13 12:04] LABS: VITAMIN D, 25-HYDROXY 48.7 ng/mL (30-100)
== END | disposition home or self-care (01) ==
LOC: RESCLI 00:33
PROVIDERS: Student in an Organized Health Care Education/Training Program; ATTEND Family Medicine
DX: I10 Essential (primary) hypertension (principal); D50.8 Other iron deficiency anemias; F17.210 Nicotine dependence, cigarettes, uncomplicated; K29.90 Gastroduodenitis, unspecified, without bleeding; J43.9 Emphysema, unspecified; M85.80 Other specified disorders of bone density and structure, unspecified site; D53.9 Nutritional anemia, unspecified; Z98.890 Other specified postprocedural states; Z91.09 Other allergy status, other than to drugs and biological substances; Z79.899 Other long term (current) drug therapy; Z82.49 Family history of ischemic heart disease and other diseases of the circulatory system

== ENCOUNTER → 2023-10-25 | Outpatient (CLI) | payer MEDICARE | END | disposition home or self-care (01) | LOC: RESCLI 02:48 | PROVIDERS: ATTEND Family Medicine | DX: J43.9 Emphysema, unspecified (principal); I10 Essential (primary) hypertension; K29.90 Gastroduodenitis, unspecified, without bleeding; F17.210 Nicotine dependence, cigarettes, uncomplicated; F10.90 Alcohol use, unspecified, uncomplicated; Z88.8 Allergy status to other drugs, medicaments and biological substances; Z98.890 Other specified postprocedural states; Z79.899 Other long term (current) drug therapy ==

== ENCOUNTER → 2023-11-15 | Outpatient (CLI) | payer MEDICARE | END | disposition home or self-care (01) | LOC: RESCLI 01:49 | PROVIDERS: ATTEND Internal Medicine | DX: J43.9 Emphysema, unspecified (principal); I10 Essential (primary) hypertension; K29.90 Gastroduodenitis, unspecified, without bleeding; Z88.8 Allergy status to other drugs, medicaments and biological substances; Z79.899 Other long term (current) drug therapy; Z98.890 Other specified postprocedural states ==

== ENCOUNTER → 2024-05-15 | Outpatient (CLI) | payer MEDICARE | END | disposition home or self-care (01) | LOC: RESCLI 00:51 | PROVIDERS: ATTEND Student in an Organized Health Care Education/Training Program | DX: J43.9 Emphysema, unspecified (principal); I10 Essential (primary) hypertension; K29.90 Gastroduodenitis, unspecified, without bleeding; Z98.890 Other specified postprocedural states; F17.210 Nicotine dependence, cigarettes, uncomplicated; Z88.8 Allergy status to other drugs, medicaments and biological substances; Z79.899 Other long term (current) drug therapy ==

== ENCOUNTER → 2024-08-21 | Outpatient (CLI) | payer MEDICARE ==
[2024-08-21 09:38] LABS: BASO # 0.1 10*3/uL (0.0-0.1); BASO % 1.6 % (0.0-1.0); HEMATOCRIT 34.5 % (42.0-52.0); MEAN CELL VOLUME 96.9 fl (80.0-94.0); MEAN CORPUSCULAR HGB 33.1 pg (27.0-31.0); MEAN CORPUSCULAR HGB CONC 34.2 g/dl (33.0-37.0); MEAN PLATELET VOLUME 8.8 fl (9.6-12.3); MONO # 0.2 10*3/uL (0.1-1.0); NEUT # 2.1 10*3/uL (2.3-7.9); NEUT % 54.7 % (47.0-73.0); PLATELET COUNT AUTOMATED 204 10*3/uL (130-400); RED BLOOD COUNT 3.56 10*6/uL (4.50-5.90); RED CELL DISTRI WIDTH 14.7 % (0-14.5); WHITE BLOOD COUNT 3.8 10*3/uL (4.8-10.8)
[2024-08-21 09:57] LABS: ALKALINE PHOSPHATASE 55 U/L (46-116); BUN 9 mg/dl (9-23); CHLORIDE 99 mmol/L (98-107); POTASSIUM 4.1 mmol/L (3.4-5.1); SGPT/ALT 9 U/L (5-49); TOTAL PROTEIN 8.2 gm/dL (6.0-8.0)
== END | disposition home or self-care (01) ==
LOC: RESCLI 02:01
PROVIDERS: ATTEND Internal Medicine
DX: J44.89 Other specified chronic obstructive pulmonary disease (principal); I10 Essential (primary) hypertension; D53.9 Nutritional anemia, unspecified; F17.210 Nicotine dependence, cigarettes, uncomplicated; K29.90 Gastroduodenitis, unspecified, without bleeding; Z79.899 Other long term (current) drug therapy; Z88.8 Allergy status to other drugs, medicaments and biological substances; Z98.890 Other specified postprocedural states

== ENCOUNTER → 2025-02-19 | Outpatient (CLI) | payer MEDICARE | END | disposition home or self-care (01) | LOC: RESCLI 03:10 | PROVIDERS: ATTEND Internal Medicine | DX: J43.9 Emphysema, unspecified (principal); I10 Essential (primary) hypertension; K29.90 Gastroduodenitis, unspecified, without bleeding; Z79.899 Other long term (current) drug therapy; Z98.890 Other specified postprocedural states; Z88.8 Allergy status to other drugs, medicaments and biological substances ==

== ENCOUNTER → 2025-08-27 | Outpatient (CLI) | payer MEDICARE | END | disposition home or self-care (01) | LOC: RESCLI 01:02 | PROVIDERS: ATTEND Family Medicine | DX: J43.9 Emphysema, unspecified (principal); I10 Essential (primary) hypertension; K29.90 Gastroduodenitis, unspecified, without bleeding; Z98.890 Other specified postprocedural states; F17.210 Nicotine dependence, cigarettes, uncomplicated; Z88.8 Allergy status to other drugs, medicaments and biological substances; Z79.899 Other long term (current) drug therapy ==